=== PATIENT | male | born 1950 ===

== ENCOUNTER 2017-12-21 13:10 | Inpatient (IN) | payer MEDICARE, MEDICAID ==
[2017-12-21 13:26] VITALS: BMI 24.3
[2017-12-21] MEDS ORDERED: diltiaZEM IVPB 100mg in NS 100 ML IV PRN (13:47)
[2017-12-21] MEDS ORDERED: Sodium Chloride 0.9% 500 ML IV STA (14:16)
--- NOTE | 2017-12-21 14:22 | RAD ---
HISTORY: sob COMPARISON: No prior. FINDINGS: LUNGS: No active pulmonary disease. PLEURA: No significant pleural effusion identified, no pneumothorax apparent. CARDIOVASCULAR: Mild cardiomegaly OSSEOUS STRUCTURES: No significant abnormalities. VISUALIZED UPPER ABDOMEN: Normal. OTHER FINDINGS: None. IMPRESSION: No active disease.
[2017-12-21 14:30] LABS: BASO # 0.03 K/mm3 (0.0-2.0); BASO % 0.6 % (0.0-3.0); EOS # 0.1 (0.0-0.7); EOS % 1.7 % (1.5-5.0); GRAN # 2.5 (1.4-6.5); GRAN % 46.9 % (50.0-68.0); HEMOGLOBIN 13.8 g/dL (14.0-18.0); LYMPH % 37.1 % (22.0-35.0); MEAN CELL VOLUME 90.3 fl (80.0-105.0); MEAN CORPUSCULAR HGB CONC 34.3 g/dl (31.0-37.0); MEAN PLATELET VOLUME 12.3 fl (7.0-11.0); MONO # 0.7 (0.1-0.6); MONO % 13.7 % (1.0-6.0); RBC 4.45 10^6/uL (3.5-6.1); RED CELL DISTRIBUTION WIDTH 17.2 % (11.5-14.5); WHITE BLOOD COUNT 5.3 10^3/ul (4.5-11.0)
--- NOTE | 2017-12-21 14:34 | ED PDOC ---
Arrival/HPI - General Historian: Patient - History of Present Illness Time/Duration: < week Symptom Onset: Gradual Symptom Course: Worsening Quality: Pressure, Tightness <Griffin Hensley - Last Filed: 12/21/17 17:28> <OdiliaMorgan - Last Filed: 12/21/17 18:53> - General Chief Complaint: Chest Pain Time Seen by Provider: 12/21/17 13:35 - History of Present Illness Narrative History of Present Illness (Text): 12/21/17 14:36 Patient is a 67 yo greek speaking M with PMH of cardiomyopathy, CHF, a. fib on AC, DM, asthma, alzheimer's, insomnia, RI (2017, cardiac catherization, stent placement is unknown) presents to ED due to chest tightness, palpitations , dyspnea and productive cough with white phlegm. Patient states that his symptoms began yesterday with insidious onset. Patient states that his symptoms are similar to when he was diagnosed about 1 month ago with atrial fibrillation. Patient denies n/v, abdominal pain, fever, chills, NEFF, or dizziness. PMD: Eddie Cardio: [facility] Translation provided [facility] [place], [id number] (Griffin Hensley) Past Medical History - Cardiac Hx Cardiac Disorders: Yes Hx Atrial Fibrillation: Yes Hx Congestive Heart Failure: Yes Hx RI: Yes Hx Hypertension: Yes Other/Comment: cardiomyopathy - Pulmonary Hx Respiratory Disorders: Yes Hx Chronic Obstructive Pulmonary Disease (COPD): Yes - Neurological Hx Neurological Disorder: No - HEENT Hx HEENT Disorder: No - Renal Hx Renal Disorder: No - Endocrine/Metabolic Hx Endocrine Disorders: Yes Hx Diabetes Mellitus Type 2: Yes - Hematological/Oncological Hx Blood Disorders: No - Integumentary Hx Dermatological Disorder: No - Musculoskeletal/Rheumatological Hx Musculoskeletal Disorders: No - Gastrointestinal Hx Gastrointestinal Disorders: No - Genitourinary/Gynecological Hx Genitourinary Disorders: No - Psychiatric Hx Psychophysiologic Disorder: No Hx Substance Use: No <Griffin Hensley - Last Filed: 12/21/17 17:28> Family/Social History Family/Social History: No Known Family HX Smoking Status: Unknown If Ever Smoked Hx Alcohol Use: No Hx Substance Use: No <Griffin Hensley - Last Filed: 12/21/17 17:28> Allergies/Home Meds <Griffin Hensley - Last Filed: 12/21/17 17:28> <Neri Hartleyoracio - Last Filed: 12/21/17 18:53> Allergies/Adverse Reactions: Allergies Penicillins Allergy (Verified 12/21/17 13:41) RASH Home Medications: Home Meds Medication Instructions Recorded Confirmed Albuterol HFA [Ventolin HFA 90 2 puff INH Q6 12/21/17 12/21/17 mcg/actuation (8 g)] Apixaban [Eliquis] 5 mg PO Q12 12/21/17 12/21/17 Aspirin [[place] Aspirin] 81 mg PO DAILY 12/21/17 12/21/17 Carvedilol [Coreg] 6.25 mg PO Q12H 12/21/17 12/21/17 Digoxin [Lanoxin] 0.25 mg PO DAILY 12/21/17 12/21/17 Ergocalciferol (Vitamin D2) 50,000 unit PO QWK 12/21/17 12/21/17 [Vitamin D2] Fluticasone/Vilanterol [Breo 1 puff INH DAILY 12/21/17 12/21/17 Ellipta 200-25 Mcg INH] Gabapentin [Neurontin] 400 mg PO TID 12/21/17 12/21/17 Montelukast [Singulair] 10 mg PO HS 12/21/17 12/21/17 Pantoprazole [Protonix EC Tab] 40 mg PO DAILY 12/21/17 12/21/17 Sacubitril/Valsartan [Entresto 49 2 tab PO Q12 12/21/17 12/21/17 mg-51 mg Tablet] Spironolactone [Aldactone] 25 mg PO DAILY 12/21/17 12/21/17 Temazepam [Restoril] 30 mg PO HS 12/21/17 12/21/17 Torsemide [Demadex] 10 mg PO DAILY 12/21/17 12/21/17 guaiFENesin/Dextromethorphan 10 ml PO Q6 12/21/17 12/21/17 [Robitussin DM] Review of Systems - Physician Review All systems were reviewed & negative as marked: Yes (12 point ROS reviewed and is negative other than what is stated in HPI.) <Griffin Hensley - Last Filed: 12/21/17 17:28> Physical Exam Vital Signs Reviewed: Yes Temperature: Afebrile Blood Pressure: Normal Pulse: Tachycardic Respiratory Rate: Tachypneic Appearance: Positive for: Uncomfortable Pain Distress: Mild Mental Status: Positive for: Alert and Oriented X 3 - Systems Exam Head: Present: Atraumatic, Normocephalic Pupils: Present: PERRL Extroacular Muscles: Present: EOMI Conjunctiva: Present: Normal Mouth: Present: Moist Mucous Membranes Neck: Present: Normal Range of Motion Respiratory/Chest: Present: Clear to Auscultation. No: Respiratory Distress, Wheezes, Rales, Rhonchi Cardiovascular: Present: Normal S1, S2, Irregular Rhythm, Tachycardic. No: Murmurs, Rub, Gallop Abdomen: No: Tenderness, Distention, Rebound, Guarding Upper Extremity: Present: Normal Inspection. No: Cyanosis, Edema Lower Extremity: Present: Normal Inspection. No: Edema Neurological: Present: GCS=15, CN II-XII Intact, Speech Normal Skin: Present: Warm, Normal Color, Diaphoretic. No: Rashes Psychiatric: Present: Alert, Oriented x 3, Normal Insight, Normal Concentration <Griffin Hensley - Last Filed: 12/21/17 17:28> Vital Signs Temp Pulse Resp BP Pulse Ox 12/21/17 16:18 98.0 F 109 H 18 106/66 95 12/21/17 14:21 108 H 18 100/59 L 97 12/21/17 13:35 152 H 12/21/17 13:24 98.2 F 150 H 18 114/83 99 Medical Decision Making <Griffin Hensley - Last Filed: 12/21/17 17:28> - Critical Care Critical Care Minutes: 30 minutes <Morgan Hartley - Last Filed: 12/21/17 18:53> ED Course and Treatment: 12/21/17 14:44 67 yo M presents to ED with chest pressure, palpitations, and dyspnea was found to have atrial fibrillation with rapid ventricular rate. Plan: - CBC, CMP - Coags - Digoxin level - Cardiac iso - EKG - UA - CXR - Cardizem bolus and gtt - IVF - Reassess and disposition EKG showed rate of 150, atrial fibrillation with rapid ventricular response and PVC, non-specific t-wave abnormality probable digitalis effect. - Cardizem 15 mg IVP was given - BP post bolus was 88/53 - 500 cc NS bolus - Cardizem gtt held for now - HR now 90-100 Repeat EKG showed rate of 112, atrial fibrillation with rapid ventricular response. 12/21/17 15:02 CXR reviewed by radiologist showed no active disease. 12/21/17 15:[address] Palumbo, who agrees with plan and accepts patient under hospitalist service. Patient will be admitted to telemetry. (Griffin Hensley) 12/21/17 18:44 Patient seen and evaluated with medical billing representative. With pairer substandard, patient examined. I have reviewed paperwork he has provided from a recent hospital admission at outside facility. On exam, he is noted to be in atrial fibrillation with rapid ventricular response. He also is noted to have mild wheezing. Cardizem given with improvement in rate. He feels less sob, there are st changes noted on repeat EKG. Patient with improved heart rate, will admit for afib, chest pain, copd. Patient is currently on anticoagulants. (Morgan Hartley) - Lab Interpretations Lab Results: 12/21/17 13:33 12/21/17 13:30 Lab Results 12/21/17 13:33: Digoxin < 0.4 L 12/21/17 13:33: PT 29.0 H, INR 2.50 H, APTT 34.4 12/21/17 13:33: WBC 5.3, RBC 4.45, Hgb 13.8 L, Hct 40.2 L, MCV 90.3, MCH 31.0, MCHC 34.3, RDW 17.2 H, Plt Count 283, MPV 12.3 H, Gran % 46.9 L, Lymph % (Auto) 37.1 H, Rogers % (Auto) 13.7 H, Eos % (Auto) 1.7, Baso % (Auto) 0.6, Gran # 2.50, Lymph # (Auto) 2.0, Rogers # (Auto) 0.7 H, Eos # (Auto) 0.1, Baso # (Auto) 0.03 12/21/17 13:30: Sodium 142, Potassium 5.0, Chloride 106, Carbon Dioxide 21, Anion Gap 20, BUN 41 H, Creatinine 1.8 H, Est GFR ( Amer) 46, Est GFR ( Non-Af Amer) 38, Random Glucose 100, Calcium 9.9, Magnesium 1.8, Total Bilirubin 0.6, AST 49, ALT 74 H, Alkaline Phosphatase 81, Lactate Dehydrogenase 658, Total Creatine Kinase 63, Troponin I < 0.01, NT-Pro-B Natriuret Pep 9690 H , Total Protein 6.9, Albumin 4.1, Globulin 2.8, Albumin/Globulin Ratio 1.4 - RAD Interpretation Radiology Orders: 12/21/17 13:46 CHEST PORTABLE [RAD] Stat - Medication Orders Current Medication Orders: Apixaban (Eliquis) 5 mg PO Q12 [facility] PRN Reason: Protocol Aspirin (Aspirin Chewable) 81 mg PO DAILY [facility] Last Admin: 12/21/17 16:36 Dose: 81 mg Benzocaine/Menthol (Cepacol Sore Throat) 1 corin MT Q2H PRN PRN Reason: Sore Throat Carvedilol (Coreg) 6.25 mg PO Q12H [facility] Last Admin: 12/21/17 16:36 Dose: Not Given Non-Admin Reason: BP Parameters Not Met Digoxin (Lanoxin) 0.25 mg PO 1400 [facility] Diltiazem HCl (Cardizem) 5 mg IVP Q6 PRN PRN Reason: Other Furosemide (Lasix) 40 mg IVP DAILY [facility] Last Admin: 12/21/17 16:36 Dose: 40 mg MAR Blood Pressure Document 12/21/17 16:36 [place] (Rec: 12/21/17 16:36 [id number] Blood Pressure Blood Pressure (100/60-150/90) 106/66 IVP Administration Document 12/21/17 16:36 HI (Rec: 12/21/17 16:36 [id number][facility] Charges for Administration # of IVP Administrations 1 Gabapentin (Neurontin) 400 mg PO TID [facility] PRN Reason: Protocol Guaifenesin/Dextromethorphan (Robitussin Dm) 10 ml PO Q6 PRN PRN Reason: Cough Ibuprofen (Motrin Tab) 600 mg PO Q6H PRN PRN Reason: Pain, moderate (4-7) Insulin Human Lispro (Humalog Med) 0 units SC ACHS [facility] PRN Reason: Protocol Levalbuterol HCl (Xopenex) 1.25 mg IH [id number] [facility] Levalbuterol HCl (Xopenex) 1.25 mg IH Q2 PRN PRN Reason: Shortness of Breath Montelukast Sodium (Singulair) 10 mg PO HS [facility] Non-Formulary Medication (Fluticasone/Vilanterol [Breo Ellipta 200-25 Mcg Inh]) 1 puff INH DAILY [facility] Non-Formulary Medication (Temazepam [Restoril]) 30 mg PO HS [facility] Pantoprazole Sodium (Protonix Ec Tab) 40 mg PO 0600 [facility] Sacubitril/Valsartan (Entresto 49 Mg-51 Mg Tablet) 1 each PO Q12 [facility] Spironolactone (Aldactone) 25 mg PO DAILY [facility] Discontinued Medications Acetaminophen (Tylenol 325mg Tab) 650 mg PO STAT ONE Stop: 12/21/17 18:40 Digoxin (Lanoxin) 0.25 mg IVP STAT STA Stop: 12/21/17 16:15 Last Admin: 12/21/17 16:56 Dose: 0.25 mg MAR Apical Pulse Rate Document 12/21/17 16:56 OYELO (Rec: 12/21/17 16:56 OYELO [id number]) Apical Pulse Rate Apical Pulse Rate (60-90 beats/min) 129 IVP Administration Document 12/21/17 16:56 OYELO (Rec: 12/21/17 16:56 OYELO [id number]) Charges for Administration # of IVP Administrations 1 Diltiazem HCl (Cardizem) 15 mg IVP ONCE ONE Stop: 12/21/17 13:48 Last Admin: 12/21/17 13:35 Dose: 15 mg IVP Administration Document 12/21/17 13:35 HI (Rec: 12/21/17 14:21 HI [id number]) Charges for Administration # of IVP Administrations 1 MAR Pulse and Blood Pressure Document 12/21/17 13:35 HI (Rec: 12/21/17 14:21 HI [id number]) Pulse Pulse Rate (60-90) 152 Sodium Chloride (Sodium Chloride 0.9%) 500 mls @ 999 mls/hr IV .Q31M STA Stop: 12/21/17 14:46 Last Admin: 12/21/17 14:21 Dose: 999 mls/hr eMAR Start Stop Document 12/21/17 14:21 WV (Rec: 12/21/17 14:21 WV [id number]) Intravenous Solution Start Date 12/21/17 Start Time 14:21 Disposition/Present on Arrival - Present on Arrival Any Indicators Present on Arrival: No History of DVT/PE: No History of Uncontrolled Diabetes: No Urinary Catheter: No History of Decub. Ulcer: No History Surgical Site Infection Following: None - Disposition Have Diagnosis and Disposition been Completed?: Yes Disposition Time: 15:29 Patient Plan: Admission, Telemetry <Griffin Hensley - Last Filed: 12/21/17 17:28> <Morgan Hartley - Last Filed: 12/21/17 18:53> - Disposition Diagnosis: Atrial fibrillation with rapid ventricular response, CHF (congestive heart failure), Chest pain, COPD (chronic obstructive pulmonary disease) Disposition: HOSPITALIZED Patient Problems: Current Active Problems Problem Status Onset Atrial fibrillation with rapid ventricular response Acute CHF (congestive heart failure) Acute Chest pain Acute Condition: GUARDED
[2017-12-21 14:41] LABS: ALB/GLOB RATIO 1.4 (1.1-1.8); ALBUMIN 4.1 g/dL (3.0-4.8); ALT/SGPT 74 U/L (7-56); AST/SGOT 49 U/L (17-59); BLOOD UREA NITROGEN 41 mg/dL (7-21); CALCIUM 9.9 mg/dL (8.4-10.5); GFR AFRICAN-AMERICAN 46; GFR NON-AFRICAN AMERICAN 38
[2017-12-21 14:53] LABS: B-TYPE NATRIURETIC PEPTIDE 9690 pg/mL (0-450); TROPONIN I < 0.01 ng/mL
[2017-12-21 14:59] LABS: INR 2.5 (0.93-1.08); PARTIAL THROMBOPLASTIN TIME 34.4 Seconds (25.1-36.5)
--- NOTE | 2017-12-21 15:14 | CARD ---
APPROVED REPORT EKG Measurement Heart [id number] <Conclusion> Atrial fibrillation with rapid ventricular response with premature ventricular or aberrantly conducted complexes Nonspecific T wave abnormality, probably digitalis effect Abnormal ECG
[2017-12-21] MEDS ORDERED: Levalbuterol 1.25 MG/3 ML Inhal Soln UD IH PRN (15:46)
[2017-12-21] MEDS ORDERED: Benzocaine/Menthol (Cepacol) Lozenge MT PRN (16:14)
[2017-12-21] MEDS ORDERED: Digoxin 500 mcg/2ml (0.5 mg/2ml) Inj IVP STA (16:14)
[2017-12-21 16:19] LABS: URINE BILIRUBIN NEGATIVE (NEGATIVE); URINE BLOOD NEGATIVE (NEGATIVE); URINE GLUCOSE (UA) NEGATIVE (NEGATIVE); URINE LEUKOCYTE ESTERASE NEGATIVE Leu/uL (NEGATIVE); URINE PROTEIN 30 mg/dL (<30 mg/dL); URINE UROBILINOGEN 0.2 E.U./dL (<1 E.U./dL)
[2017-12-21 16:20] LABS: URINE APPEARANCE CLEAR (CLEAR); URINE COLOR YELLOW (YELLOW)
[2017-12-21 16:24] LABS: URINE BACTERIA LARGE (NEG)
[2017-12-21 16:26] LABS: URINE AMORPHOUS SEDIMENT FEW
[2017-12-21 16:27] LABS: URINE COARSE GRANULAR CAST SMALL /hpf (0-2)
--- NOTE | 2017-12-21 16:33 | CP.PCM.HP ---
<Trinity Holden - Last Filed: 12/21/17 16:40> History of Present Illness - History of Present Illness History of Present Illness: Trinity Holden, PGY1, H&P for Dr Palumbo: CC: cp 67 year old male with PMH cardiomyopathy, CHF with EF 20% (11/2017), afib on Eliquis, DM, asthma, insomnia, MS (2017), nonobstructive CAD, presents for worsening cp since yesterday. Pt states that he has URI symptoms of sore throat , nasal congestion, dry cough for past few days. It has exacerbated his "asthma. " He also then started feeling midsternal cp, nonradiating, no associated nausea , vomiting, abdominal pain, diaphoresis. Reports mild sob and palpitations. Denies eating excessive salt and drinking excess water. Denies fever, chills, headache, diarrhea, constipation, urinary symptoms, leg swelling, excessive orthopnea. In ED, afebrile, HR 150s afib with RVR, given cardizem 15 mg IVP with HR in 100s with low BP in 80s -> given 500 cc bolus. CXR neg for pulm congestion. 12 point ROS obtained and negative, except as per HPI. holistic specialist service used: [place] [id number] - [place] PMD: Eddie Cardio: Verna PMH: cardiomyopathy, CHF with EF 20% (11/2017), afib on Eliquis, DM, asthma, insomnia, MS (2017), nonobstructive CAD. PSH: cardiac catherization (11/2017 - no stents) All: PCN FH: denies SH: quit tobacco 12 years ago, states that he was not a heavy smoker. Prior heavy alcohol use. Denies recreational drug use. Lives by self. Has no family around. Walks with a cane. On disability since 2002. Present on Admission - Present on Admission Any Indicators Present on Admission: No History of DVT/PE: No History of Uncontrolled Diabetes: No Urinary Catheter: No Decubitus Ulcer Present: No Review of Systems - Review of Systems All systems: reviewed and no additional remarkable complaints except Review of Systems: as per HPI Past Patient History - Past Social History Smoking Status: Unknown If Ever Smoked - CARDIAC Hx Cardiac Disorders: Yes Hx Atrial Fibrillation: Yes Hx Congestive Heart Failure: Yes Hx Heart Attack: Yes Hx Hypertension: Yes Other/Comment: cardiomyopathy - PULMONARY Hx Respiratory Disorders: Yes Hx Chronic Obstructive Pulmonary Disease (COPD): Yes - NEUROLOGICAL Hx Neurological Disorder: No - HEENT Hx HEENT Problems: No - RENAL Hx Chronic Kidney Disease: No - ENDOCRINE/METABOLIC Hx Endocrine Disorders: Yes Hx Diabetes Mellitus Type 2: Yes - HEMATOLOGICAL/ONCOLOGICAL Hx Blood Disorders: No - INTEGUMENTARY Hx Dermatological Problems: No - MUSCULOSKELETAL/RHEUMATOLOGICAL Hx Musculoskeletal Disorders: No - GASTROINTESTINAL Hx Gastrointestinal Disorders: No - GENITOURINARY/GYNECOLOGICAL Hx Genitourinary Disorders: No - PSYCHIATRIC Hx Psychophysiologic Disorder: No Hx Substance Use: No - SURGICAL HISTORY Hx Surgeries: Yes Meds Allergies/Adverse Reactions: Allergies Allergy/AdvReac Type Severity Reaction Status Date / Time Penicillins Allergy RASH Verified 12/21/17 13:41 Physical Exam - Constitutional Appears: Non-toxic, No Acute Distress, Chronically Ill - Head Exam Head Exam: ATRAUMATIC, NORMOCEPHALIC - Eye Exam Eye Exam: EOMI, PERRL. absent: Conjunctival injection, Nystagmus, Scleral icterus Pupil Exam: NORMAL ACCOMODATION, PERRL. absent: Irregular, Miosis, Mydriatic, Unequal - ENT Exam ENT Exam: Mucous Membranes Moist - Neck Exam Neck exam: Positive for: Full Rom - Respiratory Exam Respiratory Exam: Clear to Auscultation Bilateral, NORMAL BREATHING PATTERN. absent: Chest Wall Tenderness, Decreased Breath Sounds, Rales, Rhonchi, Wheezes , Respiratory Distress, Stridor - Cardiovascular Exam Cardiovascular Exam: Tachycardia, Irregular Rhythm - GI/Abdominal Exam GI & Abdominal Exam: Normal Bowel Sounds, Soft. absent: Distended, Firm, Guarding, Hernia, Mass, Organomegaly, Pulsatile Mass, Rebound, Rigid, Tenderness - Extremities Exam Extremities exam: Positive for: normal inspection. Negative for: calf tenderness, pedal edema - Back Exam Back exam: NORMAL INSPECTION - Neurological Exam Neurological exam: Alert, Oriented x3 - Psychiatric Exam Psychiatric exam: Normal Affect, Normal Mood - Skin Skin Exam: Dry, Normal Color, Warm Results - Vital Signs Recent Vital Signs: Last Vital Signs Temp 98.2 F 12/21/17 13:24 Pulse 108 H 12/21/17 14:21 Resp 18 12/21/17 14:21 BP 100/59 L 12/21/17 14:21 Pulse Ox 97 12/21/17 14:21 - Labs Result Diagrams: 12/21/17 13:33 12/21/17 13:30 Assessment & Plan - Assessment and Plan (Free Text) Assessment: 67 year old male with PMH systolic heart failure with EF 20% (11/2017), afib on eliquis, DM, insomnia, nonobstructive CAD, cardiomyopathy, presents for chest pain, URI symptoms, found to be in afib with RVR: Afib with RVR: - HR 150s in ED, afib with RVR, given cardizem 15 mg IVPx1, HR in 100s. - BP on low side 80s/60s - given 500 cc bolus - will restart home digoxin 0.25 mg PO daily. home carvedilol 6.25 mg PO q12 - cardizem 5 mg IV q6 prn for HR>130s, hold if SBP<90s - tele monitoring Chest pain 2/2 MSK - trops negx1 - EKG HR 150, atrial fibrillation with rapid ventricular response and PVC, non- specific t-wave abnormality probable digitalis effect. - digoxin level low - motrin prn pain - [place] [facility] [place] st[place] - Dr Gillespie consulted. appreciate recs. Discussed with Dr Gillespie - states that there is no need for serial trops URI: - robitussin - cepacol lozenges - afebrile, no leukocytosis - monitor Hx of DM: - ISS- monitor Hx of CHF/CAD: - BNP elevated - lasix IV - Entresto, ASA 81, coreg, dig, entresto, aldactone PPX: protonix, scds. Case seen and discussed with Dr Palumbo. Trinity Holden, PGY1 - Date & Time Date: 12/21/17 Time: 16:50 <Dangelo Palumbo - Last Filed: 12/22/17 15:50> Results - Vital Signs Recent Vital Signs: Last Vital Signs Temp 97.6 F 12/22/17 11:52 Pulse 79 12/22/17 11:52 Resp 19 12/22/17 11:52 BP 95/68 L 12/22/17 11:52 Pulse Ox 98 12/22/17 06:00 - Labs Result Diagrams: 12/22/17 05:30 12/22/17 05:30 Labs: Laboratory Results - last 24 hr 12/21/17 12/21/17 12/21/17 16:10 17:49 21:40 WBC RBC Hgb Hct MCV MCH MCHC RDW Plt Count MPV Gran % Lymph % (Auto) [place] % (Auto) Eos % (Auto) Baso % (Auto) Gran # Lymph # (Auto) [place] # (Auto) Eos # (Auto) Baso # (Auto) Sodium Potassium Chloride Carbon Dioxide Anion Gap BUN Creatinine Est GFR ( Amer) Est GFR (Non-Af Amer) POC Glucose (mg/dL) 205 H 92 Random Glucose Hemoglobin A1c Calcium Total Bilirubin AST ALT Alkaline Phosphatase Total Protein Albumin Globulin Albumin/Globulin Ratio Procalcitonin Urine Color Yellow Urine Appearance Clear Urine pH 6.0 Ur Specific [place] 1.025 Urine Protein 30 H Urine Glucose (UA) Negative Urine Ketones Negative Urine Blood Negative Urine Nitrate Negative Urine Bilirubin Negative Urine Urobilinogen 0.2 Ur Leukocyte Esterase Negative Urine RBC 1 - 3 Urine WBC 5 - 10 Ur Epithelial Cells None Amorphous Sediment Few Urine Bacteria Large Hyaline Casts 3-5 Fine Granular Casts 2 - 5 Coarse Granular Casts Small H Ur Random Creatinine Ur Random Sodium Ur Random Urea Nitrogn 12/22/17 12/22/17 12/22/17 05:30 05:30 05:30 WBC 5.4 RBC 4.01 Hgb 12.1 L Hct 36.0 L MCV 89.8 MCH 30.2 MCHC 33.6 RDW 17.0 H Plt Count 236 MPV 12.0 H Gran % 41.0 L Lymph % (Auto) 43.9 H [place] % (Auto) 12.5 H Eos % (Auto) 2.2 Baso % (Auto) 0.4 Gran # 2.21 Lymph # (Auto) 2.4 [place] # (Auto) 0.7 H Eos # (Auto) 0.1 Baso # (Auto) 0.02 Sodium Potassium Chloride Carbon Dioxide Anion Gap BUN Creatinine Est GFR ( Amer) Est GFR (Non-Af Amer) POC Glucose (mg/dL) Random Glucose Hemoglobin A1c 6.6 H Calcium Total Bilirubin AST ALT Alkaline Phosphatase Total Protein Albumin Globulin Albumin/Globulin Ratio Procalcitonin 0.24 Urine Color Urine Appearance Urine pH Ur Specific [place] Urine Protein Urine Glucose (UA) Urine Ketones Urine Blood Urine Nitrate Urine Bilirubin Urine Urobilinogen Ur Leukocyte Esterase Urine RBC Urine WBC Ur Epithelial Cells Amorphous Sediment Urine Bacteria Hyaline Casts Fine Granular Casts Coarse Granular Casts Ur Random Creatinine Ur Random Sodium Ur Random Urea Nitrogn 12/22/17 12/22/17 12/22/17 05:30 07:17 10:06 WBC RBC Hgb Hct MCV MCH MCHC RDW Plt Count MPV Gran % Lymph % (Auto) [place] % (Auto) Eos % (Auto) Baso % (Auto) Gran # Lymph # (Auto) [place] # (Auto) Eos # (Auto) Baso # (Auto) Sodium 139 Potassium 5.1 H Chloride 107 Carbon Dioxide 21 Anion Gap 16 BUN 54 H Creatinine 2.2 H Est GFR ( Amer) 36 Est GFR (Non-Af Amer) 30 POC Glucose (mg/dL) 71 Random Glucose 78 Hemoglobin A1c Calcium 9.1 Total Bilirubin 0.4 AST 36 ALT 72 H Alkaline Phosphatase 75 Total Protein 5.9 Albumin 3.4 Globulin 2.5 Albumin/Globulin Ratio 1.4 Procalcitonin Urine Color Urine Appearance Urine pH Ur Specific [place] Urine Protein Urine Glucose (UA) Urine Ketones Urine Blood Urine Nitrate Urine Bilirubin Urine Urobilinogen Ur Leukocyte Esterase Urine RBC Urine WBC Ur Epithelial Cells Amorphous Sediment Urine Bacteria Hyaline Casts Fine Granular Casts Coarse Granular Casts Ur Random Creatinine 32 Ur Random Sodium 39 Ur Random Urea Nitrogn 356 12/22/17 11:17 WBC RBC Hgb Hct MCV MCH MCHC RDW Plt Count MPV Gran % Lymph % (Auto) [place] % (Auto) Eos % (Auto) Baso % (Auto) Gran # Lymph # (Auto) [place] # (Auto) Eos # (Auto) Baso # (Auto) Sodium Potassium Chloride Carbon Dioxide Anion Gap BUN Creatinine Est GFR ( Amer) Est GFR (Non-Af Amer) POC Glucose (mg/dL) 102 Random Glucose Hemoglobin A1c Calcium Total Bilirubin AST ALT Alkaline Phosphatase Total Protein Albumin Globulin Albumin/Globulin Ratio Procalcitonin Urine Color Urine Appearance Urine pH Ur Specific [place] Urine Protein Urine Glucose (UA) Urine Ketones Urine Blood Urine Nitrate Urine Bilirubin Urine Urobilinogen Ur Leukocyte Esterase Urine RBC Urine WBC Ur Epithelial Cells Amorphous Sediment Urine Bacteria Hyaline Casts Fine Granular Casts Coarse Granular Casts Ur Random Creatinine Ur Random Sodium Ur Random Urea Nitrogn Attending/Attestation - Attestation I have personally seen and examined this patient.: Yes I have fully participated in the care of the patient.: Yes I have reviewed all pertinent clinical information: Yes Notes (Text): 12/22/17 15:43 attending note; Patient seen and examined with resident in ER. Patient is a 67 year old male with the PMH of cardiomyopathy, CHF with EF 20% (11/2017), afib on Eliquis, DM, asthma, MS (2016), nonobstructive CAD,[place] cardiac [place] [facility] with chest pressure and shortness of breath. found to be in rapid A. fib. Got IV Cardizem. Patient has multiple admissions in [facility] and [facility]. Started on IV digoxin. Acute systolic CHF; continue IV Lasix, Aldactone and metolazone. cardiology evaluation requested. continue entresto. monitor in telemetry closely. COPD/asthma; continue oxygen. Continue Xopenex treatment. Acute on chronic kidney disease; mostly secondary to decompensated heart failure. Cardiorenal syndrome. monitor creatinine closely. Strict input and output ordered. daily weight ordered. Dietary education given. prognosis is poor secondary to advanced cardiomyopathy. Upon discharge the patient will follow-up with PMD .
[2017-12-21] MEDS: Levalbuterol 1.25 MG/3 ML Inhal Soln UD IH SCH (20:00)
--- NOTE | 2017-12-21 20:31 | CARD ---
APPROVED REPORT EKG Measurement Heart [id number] <Conclusion> Atrial fibrillation with rapid ventricular response Low voltage QRS T wave abnormality, consider lateral ischemia or digitalis effect Abnormal ECG
[2017-12-21] MEDS: guaiFENesin DM 200 mg-20 mg/10 ml UD PO PRN (21:30)
[2017-12-21] MEDS: SACUBITRIL 49mg/VALSARTAN 51mg tab PO SCH (21:30)
[2017-12-21] MEDS ORDERED: Pneumococcal 23-Valent Vaccine IM ONE (21:39)
[2017-12-21] MEDS: Insulin Lispro (humaLOG) MEDIUM Coverage SC SCH (21:41)
[2017-12-22] MEDS: Levalbuterol 1.25 MG/3 ML Inhal Soln UD IH SCH ×2 (02:45→08:08)
[2017-12-22] MEDS: Pantoprazole 40 mg EC Tab PO SCH (05:28)
[2017-12-22 06:19] LABS: BASO # 0.02 K/mm3 (0.0-2.0); BASO % 0.4 % (0.0-3.0); EOS # 0.1 (0.0-0.7); EOS % 2.2 % (1.5-5.0); GRAN # 2.21 (1.4-6.5); HEMOGLOBIN 12.1 g/dL (14.0-18.0); LYMPH # 2.4 (1.2-3.4); LYMPH % 43.9 % (22.0-35.0); MEAN CELL VOLUME 89.8 fl (80.0-105.0); MEAN CORPUSCULAR HEMOGLOBIN 30.2 pg (25.0-35.0); MEAN CORPUSCULAR HGB CONC 33.6 g/dl (31.0-37.0); MONO # 0.7 (0.1-0.6); MONO % 12.5 % (1.0-6.0); RBC 4.01 10^6/uL (3.5-6.1); WHITE BLOOD COUNT 5.4 10^3/ul (4.5-11.0)
[2017-12-22 06:30] LABS: ALB/GLOB RATIO 1.4 (1.1-1.8); ALBUMIN 3.4 g/dL (3.0-4.8); CALCIUM 9.1 mg/dL (8.4-10.5)
[2017-12-22] MEDS: Insulin Lispro (humaLOG) MEDIUM Coverage SC SCH (08:39)
[2017-12-22] MEDS: guaiFENesin DM 200 mg-20 mg/10 ml UD PO PRN (08:53)
--- NOTE | 2017-12-22 08:57 | CP.PCM.PN ---
<Susan Alberto - Last Filed: 12/22/17 12:18> Subjective - Date & Time of Evaluation Date of Evaluation: 12/22/17 Time of Evaluation: 14:00 - Subjective Subjective: Progress note for hospitalist service Patient with no acute events overnight. States the cp, sob and cough has improved. No nausea, vomiting or diarrhea. States he was able to sleep better. No fever or chills. Denies palpitations. On tele monitor HR 80s-120s. Objective - Vital Signs/Intake and Output Vital Signs (last 24 hours): Temp Pulse Resp BP Pulse Ox 97.7 F 103 H 20 109/77 98 12/22/17 06:00 12/22/17 06:00 12/22/17 06:00 12/22/17 06:00 12/22/17 06:00 Intake and Output: 12/22/17 12/22/17 06:59 18:59 Intake Total 300 Balance 300 - Medications Medications: Current Medications Apixaban (Eliquis) 5 mg PO Q12 [facility] PRN Reason: Protocol Last Admin: 12/21/17 21:29 Dose: 5 mg Aspirin (Aspirin Chewable) 81 mg PO DAILY [facility] Last Admin: 12/21/17 16:36 Dose: 81 mg Benzocaine/Menthol (Cepacol Sore Throat) 1 corin MT Q2H PRN PRN Reason: Sore Throat Carvedilol (Coreg) 6.25 mg PO Q12H [facility] Last Admin: 12/22/17 05:28 Dose: Not Given Digoxin (Lanoxin) 0.25 mg PO 1400 [facility] Diltiazem HCl (Cardizem) 5 mg IVP Q6 PRN PRN Reason: Other Furosemide (Lasix) 40 mg IVP DAILY [facility] Last Admin: 12/21/17 16:36 Dose: 40 mg Gabapentin (Neurontin) 400 mg PO TID [facility] PRN Reason: Protocol Last Admin: 12/21/17 19:22 Dose: 400 mg Guaifenesin/Dextromethorphan (Robitussin Dm) 10 ml PO Q6 PRN PRN Reason: Cough Last Admin: 12/21/17 21:30 Dose: 10 ml Ibuprofen (Motrin Tab) 600 mg PO Q6H PRN PRN Reason: Pain, moderate (4-7) Last Admin: 12/21/17 20:17 Dose: 600 mg Insulin Human Lispro (Humalog Med) 0 units SC ACHS [facility] PRN Reason: Protocol Last Admin: 12/22/17 08:39 Dose: Not Given Levalbuterol HCl (Xopenex) 1.25 mg IH [id number] [facility] Last Admin: 12/22/17 08:08 Dose: 1.25 mg Levalbuterol HCl (Xopenex) 1.25 mg IH Q2 PRN PRN Reason: Shortness of Breath Montelukast Sodium (Singulair) 10 mg PO HS [facility] Last Admin: 12/21/17 21:30 Dose: 10 mg Non-Formulary Medication (Fluticasone/Vilanterol [Breo Ellipta 200-25 Mcg Inh]) 1 puff INH DAILY [facility] Non-Formulary Medication (Temazepam [Restoril]) 30 mg PO [facility] Pantoprazole Sodium (Protonix Ec Tab) 40 mg PO 0600 [facility] Last Admin: 12/22/17 05:28 Dose: 40 mg Sacubitril/Valsartan (Entresto 49 Mg-51 Mg Tablet) 1 each PO Q12 [facility] Last Admin: 12/21/17 21:30 Dose: 1 each Spironolactone (Aldactone) 25 mg PO DAILY [facility] - Labs Labs: 12/22/17 05:30 12/22/17 05:30 PT 29.0 SECONDS (9.4-12.5) H 12/21/17 13:33 INR 2.50 (0.93-1.08) H 12/21/17 13:33 APTT 34.4 Seconds (25.1-36.5) 12/21/17 13:33 - Constitutional Appears: No Acute Distress, Chronically Ill - Head Exam Head Exam: ATRAUMATIC, NORMAL INSPECTION, NORMOCEPHALIC - Eye Exam Eye Exam: EOMI, Normal appearance, PERRL. absent: Scleral icterus Pupil Exam: NORMAL ACCOMODATION - ENT Exam ENT Exam: Mucous Membranes Dry - Neck Exam Neck Exam: Normal Inspection - Respiratory Exam Respiratory Exam: Clear to Ausculation Bilateral, NORMAL BREATHING PATTERN. absent: Decreased Breath Sounds, Prolonged Expiratory Phase, Rales, Rhonchi, Wheezes, Respiratory Distress, Stridor - Cardiovascular Exam Cardiovascular Exam: Irregular Rhythm, +S1, +S2. absent: Diastolic murmur, Gallop, JVD, Rubs, Murmur - GI/Abdominal Exam GI & Abdominal Exam: Soft, Normal Bowel Sounds. absent: Distended, Firm, Guarding, Rigid, Tenderness, Organomegaly, Rebound - Extremities Exam Extremities Exam: Normal Inspection. absent: Pedal Edema, Tenderness - Back Exam Back Exam: NORMAL INSPECTION - Neurological Exam Neurological Exam: Alert, Awake, Oriented x3 - Psychiatric Exam Psychiatric exam: Normal Affect, Normal Mood - Skin Skin Exam: Dry, Intact, Warm Assessment and Plan - Assessment and Plan (Free Text) Assessment: Patient is a 67 y/o with PMHx of dilated cardiomyopathy with LVEF of 20% ( last echo December 2017), pulm htn, afib on Eliquis, asthma, insomnia, h/o SC with nonobstructive CAD last cardiac cath December 2017 who presented with worsening shortness of breath and chest pain, along with cough productive with whitish sputum. Patient was found to be in RVR afib, thus was admitted for management. Plan: 1) RVR afib - HR around 90-120s - dig level <0.4 - will continue with digoxin po and coreg. - Cardizem ivp prn for hr above 130 - Chadsc vasc of 3, will continue with eliquis. - Data Services Developer following, recommendations as stated below, - Patient to follow up with the shale miner in 3 days upon discharge - Continue tele monitoring 2) CHF versus asthma/COPD exacerbation - Chest x-ray with vascular congestion, - prob bnp was elevated on admission, trop x1 normal - cardiology evaluated patient, recommending increasing Lasix to 40 bid and add metolazone 5 mg daily. - Will reduce aldactone to 12.5 mg daily and monitor potassium - Continue coreg and entresto - last echo 11/2017 with ef of 20%, last cardiac cath 12/2017 with non obstructive CAD. - continue strict i&o, and daily weight - Pulm was also consulted, started on levaquin for copd exacerbation, tapering dose steroid, brovana, pulmocort, - will continue xoponex standing dose and prn. - Continue robittusin prn for cough 3) BRIDGET on ckd - worsening renal function, creat 2.2 today - ua with course granular cast, and protein of 30, likely ATN versus cardiorenal - R/o pre-renal versus post renal - Urine lytes ordered, - patient voiding as per nurse - Insurance Sales Agent is consulted - will adjust digoxin as accordingly 4) Mil hyperkalemia- adjusting aldactone dosage, Lasix and metolazone should help - will monitor for now 5) h/o htn- bp controlled with meds listed above 6) h/o peripheral neuropathy- continue with gabapentin 7) h/o insomnia- started on Ambien prn hs 8) DVT and gi prophylaxis- on eliquis for afib and protonix for gi prophylaxis. 9) Dispo- pending - To follow up with shale miner in 3 days upon discharge. Patient seen, examined and case discussed with Dr Palumbo. <Dangelo Palumbo - Last Filed: 12/22/17 15:58> Objective - Vital Signs/Intake and Output Vital Signs (last 24 hours): Temp Pulse Resp BP Pulse Ox 97.6 F 79 19 95/68 L 98 12/22/17 11:52 12/22/17 11:52 12/22/17 11:52 12/22/17 11:52 12/22/17 06:00 Intake and Output: 12/22/17 12/22/17 06:59 18:59 Intake Total 300 Balance 300 - Medications Medications: Current Medications Apixaban (Eliquis) 5 mg PO Q12 [facility] PRN Reason: Protocol Last Admin: 12/22/17 09:02 Dose: 5 mg Arformoterol Tartrate (Brovana) 15 mcg IH [id number] [facility] Last Admin: 12/22/17 11:04 Dose: 15 mcg Aspirin (Aspirin Chewable) 81 mg PO DAILY [facility] Last Admin: 12/22/17 09:02 Dose: 81 mg Benzocaine/Menthol (Cepacol Sore Throat) 1 corin MT Q2H PRN PRN Reason: Sore Throat Last Admin: 12/22/17 08:54 Dose: 1 corin Budesonide (Pulmicort Respules) 0.5 mg IH [id number] [facility] Last Admin: 12/22/17 11:04 Dose: 0.5 mg Carvedilol (Coreg) 6.25 mg PO Q12H [facility] Last Admin: 12/22/17 05:28 Dose: Not Given Digoxin (Lanoxin) 0.25 mg PO 1400 [facility] Last Admin: 12/22/17 14:00 Dose: 0.25 mg Diltiazem HCl (Cardizem) 5 mg IVP Q6 PRN PRN Reason: Other Furosemide (Lasix) 40 mg IVP Q12 [facility] Gabapentin (Neurontin) 400 mg PO TID [facility] PRN Reason: Protocol Last Admin: 12/22/17 14:00 Dose: 400 mg Guaifenesin/Dextromethorphan (Robitussin Dm) 10 ml PO Q6 PRN PRN Reason: Cough Last Admin: 12/22/17 08:53 Dose: 10 ml Ipratropium [place] (Atrovent) 0.5 mg IH [id number] [facility] Last Admin: 12/22/17 13:32 Dose: Not Given Levalbuterol HCl (Xopenex) 1.25 mg IH Q2 PRN PRN Reason: Shortness of Breath Levofloxacin (Levaquin) 750 mg PO Q48H [facility] PRN Reason: Protocol Last Admin: 12/22/17 10:54 Dose: 750 mg Metolazone (Zaroxolyn) 5 mg PO DAILY [facility] Last Admin: 12/22/17 10:58 Dose: 5 mg Montelukast Sodium (Singulair) 10 mg PO HS [facility] Last Admin: 12/21/17 21:30 Dose: 10 mg Pantoprazole Sodium (Protonix Ec Tab) 40 mg PO 0600 [facility] Last Admin: 12/22/17 05:28 Dose: 40 mg Prednisone (Prednisone Tab) 20 mg PO Q8H [facility] Last Admin: 12/22/17 10:53 Dose: 20 mg Sacubitril/Valsartan (Entresto 49 Mg-51 Mg Tablet) 1 each PO Q12 [facility] Last Admin: 12/22/17 09:26 Dose: 1 each Spironolactone (Aldactone) 12.5 mg PO DAILY [facility] Zolpidem Tartrate (Ambien) 5 mg PO HS PRN; Protocol PRN Reason: Insomnia - Labs Labs: 12/22/17 05:30 12/22/17 05:30 PT 29.0 SECONDS (9.4-12.5) H 12/21/17 13:33 INR 2.50 (0.93-1.08) H 12/21/17 13:33 APTT 34.4 Seconds (25.1-36.5) 12/21/17 13:33 Attending/Attestation - Attestation I have personally seen and examined this patient.: Yes I have fully participated in the care of the patient.: Yes I have reviewed all pertinent clinical information, including history, physical exam and plan: Yes Notes (Text): 12/22/17 15:54 attending note; Patient seen and examined with resident , shale miner and theater set production designer. Patient is a 67 year old male with the PMH of cardiomyopathy, CHF with EF 20% (11/2017), afib on Eliquis, DM, asthma, SC (2016), nonobstructive CAD,recent cardiac cath One month ago [place] [facility] [place] admitted with chest pressure and shortness of breath. Currently A. fib is rate controlled. continue Coreg, digoxin and entersto. Acute systolic CHF; continue IV Lasix, Aldactone and metolazone. cardiology evaluation appreciated. continue entresto. mild hyperkalemia; Aldactone dosage decreased. COPD/asthma; continue oxygen,Brovana, Atrovent and by mouth prednisone and levofloxacin. Pulmonary evaluation appreciated. Acute on chronic kidney disease; mostly secondary to decompensated heart failure. Cardiorenal syndrome. nephrology evaluation requested. Strict input and output ordered. daily weight ordered. Dietary education given. prognosis is poor secondary to advanced cardiomyopathy. Upon discharge the patient will follow-up with PMD .
[2017-12-22] MEDS: SACUBITRIL 49mg/VALSARTAN 51mg tab PO SCH ×2 (09:26→22:22)
--- NOTE | 2017-12-22 09:44 | CP.PCM.CON ---
History of Present Illness - History of Present Illness History of Present Illness: patient is a 67 y/o gentleman known to us from multiple admssions at [facility] well as outpatient f/u. Patient with severe NICM Chronic AFIB Normal Cath 12/2017 Background COPD/emphysema/asthma Mild Pulmonary HTN Presents with ADHF and astham/bronchitis sx's. Review of Systems - Review of Systems All systems: reviewed and no additional remarkable complaints except Past Patient History - Past Social History Smoking Status: Never Smoked - CARDIAC Hx Cardiac Disorders: Yes (mi) Hx Cardia Arrhythmia: Yes (afib dx 1 mo ago) Hx Congestive Heart Failure: Yes Hx Hypertension: Yes Hx Peripheral Edema: Yes (ble +1 pitting) Other/Comment: cardiomyopathy - PULMONARY Hx Respiratory Disorders: Yes Hx Asthma: Yes Hx Chronic Obstructive Pulmonary Disease (COPD): Yes - NEUROLOGICAL Hx Neurological Disorder: No - HEENT Hx HEENT Problems: Yes (eyeglasses) - RENAL Hx Chronic Kidney Disease: No - ENDOCRINE/METABOLIC Hx Endocrine Disorders: Yes Hx Diabetes Mellitus Type 2: Yes - HEMATOLOGICAL/ONCOLOGICAL Hx Blood Disorders: No - INTEGUMENTARY Hx Dermatological Problems: No - MUSCULOSKELETAL/RHEUMATOLOGICAL Hx Falls: No - GASTROINTESTINAL Hx Gastrointestinal Disorders: No - GENITOURINARY/GYNECOLOGICAL Hx Genitourinary Disorders: No - PSYCHIATRIC Hx Substance Use: No - SURGICAL HISTORY Hx Surgeries: Yes Hx Cardiac Catheterization: Yes (2017 stent unknown) Meds Allergies/Adverse Reactions: Allergies Allergy/AdvReac Type Severity Reaction Status Date / Time Penicillins Allergy RASH Verified 12/21/17 13:41 - Medications Medications: Current Medications Apixaban (Eliquis) 5 mg PO Q12 [facility] PRN Reason: Protocol Last Admin: 12/22/17 09:02 Dose: 5 mg Aspirin (Aspirin Chewable) 81 mg PO DAILY [facility] Last Admin: 12/22/17 09:02 Dose: 81 mg Benzocaine/Menthol (Cepacol Sore Throat) 1 corin MT Q2H PRN PRN Reason: Sore Throat Last Admin: 12/22/17 08:54 Dose: 1 corin Carvedilol (Coreg) 6.25 mg PO Q12H [facility] Last Admin: 12/22/17 05:28 Dose: Not Given Digoxin (Lanoxin) 0.25 mg PO 1400 [facility] Diltiazem HCl (Cardizem) 5 mg IVP Q6 PRN PRN Reason: Other Furosemide (Lasix) 40 mg IVP DAILY [facility] Last Admin: 12/21/17 16:36 Dose: 40 mg Gabapentin (Neurontin) 400 mg PO TID [facility] PRN Reason: Protocol Last Admin: 12/22/17 09:00 Dose: 400 mg Guaifenesin/Dextromethorphan (Robitussin Dm) 10 ml PO Q6 PRN PRN Reason: Cough Last Admin: 12/22/17 08:53 Dose: 10 ml Insulin Human Lispro (Humalog Med) 0 units SC ACHS [facility] PRN Reason: Protocol Last Admin: 12/22/17 08:39 Dose: Not Given Levalbuterol HCl (Xopenex) 1.25 mg IH Q6BVCGP [facility] Last Admin: 12/22/17 08:08 Dose: 1.25 mg Levalbuterol HCl (Xopenex) 1.25 mg IH Q2 PRN PRN Reason: Shortness of Breath Montelukast Sodium (Singulair) 10 mg PO HS [facility] Last Admin: 12/21/17 21:30 Dose: 10 mg Non-Formulary Medication (Fluticasone/Vilanterol [Breo Ellipta 200-25 Mcg Inh]) 1 puff INH DAILY [facility] Temazepam [Restoril] (30 Mg) 30 mg PO HS [facility] Pantoprazole Sodium (Protonix Ec Tab) 40 mg PO 0600 [facility] Last Admin: 12/22/17 05:28 Dose: 40 mg Sacubitril/Valsartan (Entresto 49 Mg-51 Mg Tablet) 1 each PO Q12 [facility] Last Admin: 12/22/17 09:26 Dose: 1 each Spironolactone (Aldactone) 25 mg PO DAILY [facility] Last Admin: 12/22/17 09:01 Dose: 25 mg Physical Exam - Constitutional Appears: No Acute Distress - Head Exam Head Exam: ATRAUMATIC, NORMAL INSPECTION, NORMOCEPHALIC - Eye Exam Eye Exam: EOMI, Normal appearance, PERRL - ENT Exam ENT Exam: Normal Oropharynx - Neck Exam Neck exam: Positive for: Normal Inspection - Respiratory Exam Respiratory Exam: Clear to Auscultation Bilateral - Cardiovascular Exam Cardiovascular Exam: Irregular Rhythm. absent: +S1, +S2, Systolic Murmur - GI/Abdominal Exam GI & Abdominal Exam: Normal Bowel Sounds, Soft. absent: Tenderness - Extremities Exam Extremities exam: Positive for: normal inspection, pedal edema. Negative for: calf tenderness, tenderness - Neurological Exam Neurological exam: Alert, Oriented x3 - Psychiatric Exam Psychiatric exam: Normal Affect, Normal Mood - Skin Skin Exam: Normal Color, Warm Results - Vital Signs Recent Vital Signs: Last Vital Signs Temp 97.7 F 12/22/17 06:00 Pulse 103 H 12/22/17 06:00 Resp 20 12/22/17 06:00 BP 109/77 12/22/17 06:00 Pulse Ox 98 12/22/17 06:00 - Labs Result Diagrams: 12/22/17 05:30 12/22/17 05:30 Labs: Laboratory Results - last 24 hr 12/21/17 12/21/17 12/21/17 16:10 17:49 21:40 WBC RBC Hgb Hct MCV MCH MCHC RDW Plt Count MPV Gran % Lymph % (Auto) [place] % (Auto) Eos % (Auto) Baso % (Auto) Gran # Lymph # (Auto) [place] # (Auto) Eos # (Auto) Baso # (Auto) Sodium Potassium Chloride Carbon Dioxide Anion Gap BUN Creatinine Est GFR ( Amer) Est GFR (Non-Af Amer) POC Glucose (mg/dL) 205 H 92 Random Glucose Calcium Total Bilirubin AST ALT Alkaline Phosphatase Total Protein Albumin Globulin Albumin/Globulin Ratio Urine Color Yellow Urine Appearance Clear Urine pH 6.0 Ur Specific [place] 1.025 Urine Protein 30 H Urine Glucose (UA) Negative Urine Ketones Negative Urine Blood Negative Urine Nitrate Negative Urine Bilirubin Negative Urine Urobilinogen 0.2 Ur Leukocyte Esterase Negative Urine RBC 1 - 3 Urine WBC 5 - 10 Ur Epithelial Cells None Amorphous Sediment Few Urine Bacteria Large Hyaline Casts 3-5 Fine Granular Casts 2 - 5 Coarse Granular Casts Small H 12/22/17 12/22/17 12/22/17 05:30 05:30 07:17 WBC 5.4 RBC 4.01 Hgb 12.1 L Hct 36.0 L MCV 89.8 MCH 30.2 MCHC 33.6 RDW 17.0 H Plt Count 236 MPV 12.0 H Gran % 41.0 L Lymph % (Auto) 43.9 H [place] % (Auto) 12.5 H Eos % (Auto) 2.2 Baso % (Auto) 0.4 Gran # 2.21 Lymph # (Auto) 2.4 [place] # (Auto) 0.7 H Eos # (Auto) 0.1 Baso # (Auto) 0.02 Sodium 139 Potassium 5.1 H Chloride 107 Carbon Dioxide 21 Anion Gap 16 BUN 54 H Creatinine 2.2 H Est GFR ( Amer) 36 Est GFR (Non-Af Amer) 30 POC Glucose (mg/dL) 71 Random Glucose 78 Calcium 9.1 Total Bilirubin 0.4 AST 36 ALT 72 H Alkaline Phosphatase 75 Total Protein 5.9 Albumin 3.4 Globulin 2.5 Albumin/Globulin Ratio 1.4 Urine Color Urine Appearance Urine pH Ur Specific [place] Urine Protein Urine Glucose (UA) Urine Ketones Urine Blood Urine Nitrate Urine Bilirubin Urine Urobilinogen Ur Leukocyte Esterase Urine RBC Urine WBC Ur Epithelial Cells Amorphous Sediment Urine Bacteria Hyaline Casts Fine Granular Casts Coarse Granular Casts - EKG Data EKG Interpreted by: Myself (AFIB, no ischemia) Assessment & Plan - Assessment and Plan (Free Text) Assessment: 1. ADHF (CXR with congestion, inc PBNP, audible crep at bases) NICM: cath normal 12/2017 Maximize CHF therapy Entresto coreg : Low BP prevents titration Lasix inc to 40 IV BID and cnsider metolazone 5 Caution with DIG: as CKD/BRIDGET stage 3-4, K+ 5.1 dig level was 0.4 CHF diet 2. AFIB chronic cont eliquis rate control with dig and coreg future consideration of AFIB ablation or CV and maintainence therapy 3. COPD/Bronchitis Adjust meds for COPD Pulm suportive care F/U with my partner Dr. Gillespie after d/c when stable
[2017-12-22] MEDS ORDERED: Tiotropium 18 mcg Cap For Inhalation IH SCH (10:00)
[2017-12-22] MEDS ORDERED: Non Formulary Medication (Fluticasone/Vilanterol [Breo Ellipta 200-25 Mcg Inh] 1 PUFF) INH SCH (10:00)
[2017-12-22] MEDS ORDERED: levoFLOXacin 750 MG TAB PO SCH (10:15)
[2017-12-22 10:28] LABS: CREATININE,RANDOM URINE 32 mg/dL
[2017-12-22] MEDS: metOLazone 5 MG TAB PO SCH (10:58)
[2017-12-22] MEDS: Arformoterol 15 mcg/2 ml Inh Sol IH SCH ×2 (11:04→19:22)
[2017-12-22] MEDS: Budesonide 0.5 mg/2 ml Inhal Susp UD IH SCH ×2 (11:04→19:22)
[2017-12-22] MEDS: Ipratropium 0.02% Inhal Soln (0.5 mg/2.5 ml) UD IH SCH ×2 (13:32→19:22)
[2017-12-22] MEDS: Digoxin 250 mcg (0.25 mg) Tab PO SCH (14:00)
--- NOTE | 2017-12-22 14:11 | IP.NPCORE ---
Heart Failure Core Measure ZECHARIAH Inhibitor Prescribed: Yes Beta-Emilee Prescribed: Carvedilol Angiotensin II Receptor Emilee Prescribed: Yes AnticoagulationTherapy for Atrial Fibrillation/Atrialflutter: Yes Aldosterone Antagonist Prescribed: Yes Hydralazine Nitrate Prescribed: No Contraindication/Reason for not providing: hypotensive Implantable Cardioverter Defibrillator Therapy: No Cardiac Resynchronization Therapy Prescribed: Yes Contraindication/Reason for not providing: possible afib ablation therapy - discussed for new onset afib - Follow up Will be discharged to: Home Follow Up Date (must be within 7 days from discharge): 12/29/17 (recommended date) Follow Up Time: 09:00
--- NOTE | 2017-12-22 14:30 | PQF GENQUE ---
This form is a permanent part of the medical record Dr. Lau, Chart reflects this patient was admitted with afib RVR and CHF. Documentation in H&P notes that patient has systolic dysfunction with EF 20%. Your cardiology consult (done by your associate Dr. Lau) uses the term "ADHF " when referring to CHF noting criteria of CXR with congestion and elevated BNP. Please clarify use of this abbreviation (? acute diastolic heart failure) so accurate code is applied. Clarification of your documentation is requested to better reflect the severity of illness and intensity of treatment of your patient. Indicators present [] Specify: [] [] Specify: [] [] Specify: [] [] Specify: [] Location in the medical record that reflects the above clinical findings: [] Treatment Provided: [] PHYSICIAN'S RESPONSE Based on your medical judgment of the clinical indicators outlined above please clarify the following: [] Practitioner response [] If unable to determine, please check the box, sign and date. Present On Admission (POA) Indicator: [] Present at the time of admission [] Not present at the time of admission [] Clinically Undetermined In responding to this query, please exercise your independent professional judgment. The fact that a question is asked does not imply that any particular answer is desired or expected. Thank you for your clarification on this documentation. If you have any questions please call:[ ] * Thank you, [ ]Anabell Patel [facility] #[id number] mine engineering superintendent POLLO
[2017-12-22] MEDS ORDERED: Arformoterol 15 mcg/2 ml Inh Sol IH SCH (20:00)
[2017-12-22] MEDS ORDERED: Budesonide 0.5 mg/2 ml Inhal Susp UD IH SCH (20:00)
[2017-12-22 21:46] LABS: TROPONIN I < 0.01 ng/mL
[2017-12-23] MEDS: Ipratropium 0.02% Inhal Soln (0.5 mg/2.5 ml) UD IH SCH ×2 (01:14→07:47)
--- NOTE | 2017-12-23 05:29 | CP.PCM.CON ---
History of Present Illness - History of Present Illness History of Present Illness: 67 yo M w/ pmh of CHF w/ severe systolic dysfunction, pulmonary htn, COPD, afib , presented to ED with chest pain, admitted for CHF/COPD exacerbation; nephrology being consulted for acute kidney injury; Patient s/p cardiac cath earlier this month showing non-obstructive CAD; has been admitted multiple times over past 2 months for CHF exacerbation and afib w / RVR; Per last d/c med list from [facility], patient had aldactone added and entresto dose increased; patient with baseline serum creatinine ~1.1, now increased to 2.2 with patient continued on diuretics (switched from PO to IV lasix 40 mg q12h) but aldactone dose decreased in the setting of borderline high potassium; Past Patient History - Past Social History Smoking Status: Never Smoked - CARDIAC Hx Congestive Heart Failure: Yes (Cardiomyopathy, A fib on AC, [place] ( 2017, cardiac cath stent placement is unk) - PULMONARY Hx Chronic Obstructive Pulmonary Disease (COPD): Yes - NEUROLOGICAL Hx Neurological Disorder: No - HEENT Hx HEENT Problems: Yes (eyeglasses) - RENAL Hx Chronic Kidney Disease: No - ENDOCRINE/METABOLIC Hx Diabetes Mellitus Type 2: Yes - HEMATOLOGICAL/ONCOLOGICAL Hx Blood Disorders: No - INTEGUMENTARY Hx Dermatological Problems: No - MUSCULOSKELETAL/RHEUMATOLOGICAL Hx Falls: No - GASTROINTESTINAL Hx Gastrointestinal Disorders: No - GENITOURINARY/GYNECOLOGICAL Hx Genitourinary Disorders: No - PSYCHIATRIC Hx Substance Use: No - SURGICAL HISTORY Hx Surgeries: Yes Hx Cardiac Catheterization: Yes (2017 stent unknown) Meds Allergies/Adverse Reactions: Allergies Allergy/AdvReac Type Severity Reaction Status Date / Time Penicillins Allergy RASH Verified 12/21/17 13:41 - Medications Medications: Current Medications Apixaban (Eliquis) 5 mg PO Q12 NILESH PRN Reason: Protocol Last Admin: 12/22/17 22:05 Dose: 5 mg Arformoterol Tartrate (Brovana) 15 mcg IH [id number] [facility] Last Admin: 12/22/17 19:22 Dose: 15 mcg Aspirin (Aspirin Chewable) 81 mg PO DAILY [facility] Last Admin: 12/22/17 09:02 Dose: 81 mg Benzocaine/Menthol (Cepacol Sore Throat) 1 corin MT Q2H PRN PRN Reason: Sore Throat Last Admin: 12/22/17 08:54 Dose: 1 corin Budesonide (Pulmicort Respules) 0.5 mg IH [id number] [facility] Last Admin: 12/22/17 19:22 Dose: 0.5 mg Carvedilol (Coreg) 6.25 mg PO Q12H [facility] Last Admin: 12/23/17 04:58 Dose: Not Given Digoxin (Lanoxin) 0.25 mg PO 1400 [facility] Last Admin: 12/22/17 14:00 Dose: 0.25 mg Diltiazem HCl (Cardizem) 5 mg IVP Q6 PRN PRN Reason: Other Last Admin: 12/22/17 20:47 Dose: 5 mg Furosemide (Lasix) 40 mg IVP Q12 [facility] Last Admin: 12/22/17 22:05 Dose: Not Given Gabapentin (Neurontin) 400 mg PO TID NILESH PRN Reason: Protocol Last Admin: 12/22/17 17:17 Dose: 400 mg Guaifenesin/Dextromethorphan (Robitussin Dm) 10 ml PO Q6 PRN PRN Reason: Cough Last Admin: 12/22/17 08:53 Dose: 10 ml Ipratropium [place] (Atrovent) 0.5 mg IH [id number] [facility] Last Admin: 12/23/17 01:14 Dose: 0.5 mg Levalbuterol HCl (Xopenex) 1.25 mg IH Q2 PRN PRN Reason: Shortness of Breath Levofloxacin (Levaquin) 750 mg PO Q48H NILESH PRN Reason: Protocol Last Admin: 12/22/17 10:54 Dose: 750 mg Metolazone (Zaroxolyn) 5 mg PO DAILY [facility] Last Admin: 12/22/17 10:58 Dose: 5 mg Montelukast Sodium (Singulair) 10 mg PO HS [facility] Last Admin: 12/22/17 22:05 Dose: 10 mg Pantoprazole Sodium (Protonix Ec Tab) 40 mg PO 0600 [facility] Last Admin: 12/22/17 05:28 Dose: 40 mg Prednisone (Prednisone Tab) 20 mg PO Q8H [facility] Last Admin: 12/23/17 02:15 Dose: 20 mg Sacubitril/Valsartan (Entresto 49 Mg-51 Mg Tablet) 1 each PO Q12 [facility] Last Admin: 12/22/17 22:22 Dose: 1 each Spironolactone (Aldactone) 12.5 mg PO DAILY NILESH Zolpidem Tartrate (Ambien) 5 mg PO HS PRN; Protocol PRN Reason: Insomnia Last Admin: 12/22/17 22:12 Dose: 5 mg Results - Vital Signs Recent Vital Signs: Last Vital Signs Temp 98.0 F 12/23/17 00:01 Pulse 72 12/23/17 04:58 Resp 20 12/23/17 00:01 BP 96/69 L 12/23/17 04:58 Pulse Ox 97 12/23/17 00:01 - Labs Result Diagrams: 12/22/17 05:30 12/22/17 05:30 Labs: Laboratory Results - last 24 hr 12/21/17 12/22/17 12/22/17 21:40 05:30 05:30 WBC RBC Hgb Hct MCV MCH MCHC RDW Plt Count MPV Gran % Lymph % (Auto) Greene % (Auto) Eos % (Auto) Baso % (Auto) Gran # Lymph # (Auto) Greene # (Auto) Eos # (Auto) Baso # (Auto) Sodium Potassium Chloride Carbon Dioxide Anion Gap BUN Creatinine Est GFR ( Amer) Est GFR (Non-Af Amer) POC Glucose (mg/dL) 92 Random Glucose Hemoglobin A1c 6.6 H Calcium Total Bilirubin AST ALT Alkaline Phosphatase Lactate Dehydrogenase Total Creatine Kinase Troponin I Total Protein Albumin Globulin Albumin/Globulin Ratio Procalcitonin 0.24 Ur Random Creatinine Ur Random Sodium Ur Random Urea Nitrogn 12/22/17 12/22/17 12/22/17 05:30 05:30 07:17 WBC 5.4 RBC 4.01 Hgb 12.1 L Hct 36.0 L MCV 89.8 MCH 30.2 MCHC 33.6 RDW 17.0 H Plt Count 236 MPV 12.0 H Gran % 41.0 L Lymph % (Auto) 43.9 H Greene % (Auto) 12.5 H Eos % (Auto) 2.2 Baso % (Auto) 0.4 Gran # 2.21 Lymph # (Auto) 2.4 Greene # (Auto) 0.7 H Eos # (Auto) 0.1 Baso # (Auto) 0.02 Sodium 139 Potassium 5.1 H Chloride 107 Carbon Dioxide 21 Anion Gap 16 BUN 54 H Creatinine 2.2 H Est GFR ( Amer) 36 Est GFR (Non-Af Amer) 30 POC Glucose (mg/dL) 71 Random Glucose 78 Hemoglobin A1c Calcium 9.1 Total Bilirubin 0.4 AST 36 ALT 72 H Alkaline Phosphatase 75 Lactate Dehydrogenase Total Creatine Kinase Troponin I Total Protein 5.9 Albumin 3.4 Globulin 2.5 Albumin/Globulin Ratio 1.4 Procalcitonin Ur Random Creatinine Ur Random Sodium Ur Random Urea Nitrogn 12/22/17 12/22/17 12/22/17 10:06 11:17 21:19 WBC RBC Hgb Hct MCV MCH MCHC RDW Plt Count MPV Gran % Lymph % (Auto) Greene % (Auto) Eos % (Auto) Baso % (Auto) Gran # Lymph # (Auto) Greene # (Auto) Eos # (Auto) Baso # (Auto) Sodium Potassium Chloride Carbon Dioxide Anion Gap BUN Creatinine Est GFR ( Amer) Est GFR (Non-Af Amer) POC Glucose (mg/dL) 102 221 H Random Glucose Hemoglobin A1c Calcium Total Bilirubin AST ALT Alkaline Phosphatase Lactate Dehydrogenase Total Creatine Kinase Troponin I Total Protein Albumin Globulin Albumin/Globulin Ratio Procalcitonin Ur Random Creatinine 32 Ur Random Sodium 39 Ur Random Urea Nitrogn 356 12/22/17 21:20 WBC RBC Hgb Hct MCV MCH MCHC RDW Plt Count MPV Gran % Lymph % (Auto) Greene % (Auto) Eos % (Auto) Baso % (Auto) Gran # Lymph # (Auto) Greene # (Auto) Eos # (Auto) Baso # (Auto) Sodium Potassium Chloride Carbon Dioxide Anion Gap BUN Creatinine Est GFR ( Amer) Est GFR (Non-Af Amer) POC Glucose (mg/dL) Random Glucose Hemoglobin A1c Calcium Total Bilirubin AST ALT Alkaline Phosphatase Lactate Dehydrogenase 438 Total Creatine Kinase 43 Troponin I < 0.01 Total Protein Albumin Globulin Albumin/Globulin Ratio Procalcitonin Ur Random Creatinine Ur Random Sodium Ur Random Urea Nitrogn - Imaging and Cardiology Chest x-ray Status: Image reviewed by me Additional comment: No obvious pulmonary vascular congestion; Assessment & Plan (1) Acute kidney injury Assessment and Plan: Patient with increase in serum creatinine from baseline of 1.1 -> 2.2; mild dipstick proteinuria that needs to be quantified; otherwise, likely cardiorenal etiology of BRIDGET in the setting of severe systolic dysfunction, along with mitral regurg and pulmonary htn (per echo from 2 months ago) with patient having been on a more aggressive diuretic regimen as well as increased ARB dose (from entresto); -Need to strike a balance between aggressive diuresis and worsening renal function; since CXR is clear, utility of more aggressive diuresis is questionable (very high PA pressures on previous echo noted); right heart cath may be beneficial in this situation; -Will obtain limited workup looking for other possible causes of BRIDGET (renal US, random urine for protein/creatinine); Status: Acute (2) Pulmonary HTN Assessment and Plan: see above; Status: Chronic (3) CHF (congestive heart failure) Assessment and Plan: see above; Status: Acute
[2017-12-23] MEDS: Pantoprazole 40 mg EC Tab PO SCH (05:48)
--- NOTE | 2017-12-23 05:54 | CON ---
DATE: 12/22/2017 HISTORY OF PRESENT ILLNESS: This is a 67-year-old gentleman with history of COPD, nonischemic cardiomyopathy with ejection fraction 20%. 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 The patient was discharged; however, his symptoms never disappeared and he presented to [facility] several days after discharge from [facility] with cough productive with whitish sputum of 3-day duration, chest pain on exertion and shortness of breath. Exertion and physical exercise were aggravating factors to his complaints, staying still helping dyspnea and SOB substantially. The patient also reports that he had productive cough on and off for many years. He used to smoke; however, quit 2 years ago. He reports smoking about half a pack a day for many years prior to quitting. PAST MEDICAL HISTORY: CHF with ejection fraction 20%; cardiomyopathy, nonischemic; atrial fibrillation, on Eliquis; diabetes mellitus; asthma; [place] in 2017. MEDICATIONS AT HOME: Robitussin, Demadex, Restoril, spironolactone, Protonix, Singulair, Neurontin, Breo Ellipta, digoxin, aspirin, Eliquis, and sacubitril/valsartan. ALLERGIES: PENICILLIN. FAMILY HISTORY: Noncontributory. SOCIAL HISTORY: No alcohol or illicit drug abuse. The patient is an ex-smoker. REVIEW OF SYSTEMS: Review of 12-organ systems other than mentioned in history of present illness is negative. PHYSICAL EXAMINATION: VITAL SIGNS: Heart rate 103, blood pressure 109/77, respiratory rate 20, oxygen saturation 98% on 2 L nasal cannula, temperature 97.7. HEENT: Head and neck atraumatic. LUNGS: Few crackles bilaterally. HEART: Regular rate and rhythm. S1 and S2 distant. ABDOMEN: Soft, nontender and nondistended. MUSCULOSKELETAL: Trace bilateral pedal and ankle edema. NEURO: The patient moves all extremities spontaneously. SKIN: Moist. PSYCH: The patient is alert, awake and oriented x3. CURRENT MEDICATIONS: Eliquis, aspirin, Coreg, digoxin, Cardizem p.r.n., Breo, Lasix 40 mg IV daily, Neurontin, Atrovent every 6 hours, Xopenex p.r.n., Protonix, Singulair, Entresto, Aldactone, and Restoril. LABORATORY DATA: WBC 5.4, hemoglobin 12.1, platelet count 236. Sodium 139, potassium 5.1, chloride 107, carbon dioxide 21, BUN 54, creatinine 2.2, glucose 71, AST 36, ALT 72, total bilirubin 0.4. First troponin less than 0.01. ProBNP 9619. INR 2.5. PH level less than 0.4. IMAGING STUDIES: Chest x-ray, some vascular congestion. EKG, atrial fibrillation at 150 per minute. ASSESSMENT AND PLAN: This 67-year-old gentleman who presented with fluid overload/congestive heart failure due to severe left ventricular systolic dysfunction. Most likely, the patient also has a component of chronic obstructive pulmonary disease and that has to be addressed as well. Cardiology Service is following patient for congestive heart failure and optimizing his heart rate control medication, diuresis and therapeutic anticoagulation to prevent stroke. I agree with the above. Meanwhile, I will continue with ICS/LABA. I will start patient on Atrovent every 6 hours and if tolerates well, we will switch to Spiriva. I will start the patient on systemic steroid taper and antibiotics. We will continue with GI prophylaxis. We will continue to maintain euvolemia, euglycemia, normothermia and oxygen saturation more than 90%. We will continue with telemetry monitoring. Micheal Mackey MD MTDD
[2017-12-23 06:04] LABS: GRAN # 2.26 (1.4-6.5); GRAN % 76.6 % (50.0-68.0); HEMOGLOBIN 11.6 g/dL (14.0-18.0); LYMPH # 0.6 (1.2-3.4); LYMPH % 19.7 % (22.0-35.0); MEAN CELL VOLUME 89.7 fl (80.0-105.0); MEAN CORPUSCULAR HEMOGLOBIN 29.9 pg (25.0-35.0); MEAN CORPUSCULAR HGB CONC 33.3 g/dl (31.0-37.0); MEAN PLATELET VOLUME 11.8 fl (7.0-11.0); MONO # 0.1 (0.1-0.6); MONO % 3.7 % (1.0-6.0); RBC 3.88 10^6/uL (3.5-6.1); RED CELL DISTRIBUTION WIDTH 16.6 % (11.5-14.5)
[2017-12-23 06:39] LABS: ALB/GLOB RATIO 1.2 (1.1-1.8); ALBUMIN 3.1 g/dL (3.0-4.8); ALT/SGPT 57 U/L (7-56); AST/SGOT 22 U/L (17-59); BLOOD UREA NITROGEN 31 mg/dL (7-21); CALCIUM 8.6 mg/dL (8.4-10.5); GFR AFRICAN-AMERICAN > 60; GFR NON-AFRICAN AMERICAN 55
[2017-12-23] MEDS: Budesonide 0.5 mg/2 ml Inhal Susp UD IH SCH ×2 (07:47→20:44)
[2017-12-23] MEDS: Arformoterol 15 mcg/2 ml Inh Sol IH SCH ×2 (07:47→20:44)
[2017-12-23] MEDS: metOLazone 5 MG TAB PO SCH (09:50)
[2017-12-23] MEDS: Tiotropium 18 mcg Cap For Inhalation IH SCH (09:51)
[2017-12-23] MEDS: levoFLOXacin 750 MG TAB PO SCH (09:51)
[2017-12-23] MEDS: SACUBITRIL 49mg/VALSARTAN 51mg tab PO SCH ×2 (12:27→21:25)
--- NOTE | 2017-12-23 13:26 | US ---
PROCEDURE: Ultrasound of the Kidneys HISTORY: acute renal failure COMPARISON: None available. TECHNIQUE: Sonogram of the kidneys. FINDINGS: RIGHT KIDNEY: Measures: 9.4 cm. Normal in size, contour and echogenicity. No stone, solid mass lesion or hydronephrosis visualized. LEFT KIDNEY: Measures: 10.3 cm. Normal in size, contour and echogenicity. No stone, solid mass lesion or hydronephrosis visualized. OTHER FINDINGS: None. IMPRESSION: Unremarkable renal sonogram.
--- NOTE | 2017-12-23 13:39 | PN ---
DATE: 12/23/2017 SUBJECTIVE: The patient was seen and examined at bedside. He appears to be comfortable; however, some minimal cough with white sputum production is still present. Clinically, however, he appears to be substantially improved since hospitalization. PHYSICAL EXAMINATION: VITAL SIGNS: Heart rate 110 (atrial fibrillation on Telemetry), blood pressure 108/77, oxygen saturation 98% on 2 liters nasal cannula, respiratory rate is 20. ENT: Head and neck atraumatic. LUNGS: Decreased number of rales and crackles bilaterally. HEART: Irregular rate and rhythm. S1 and S2 distant. ABDOMEN: Soft, nontender, nondistended. MUSCULOSKELETAL: No C/C/E. NEUROLOGIC: The patient moves all extremities spontaneously. SKIN: Moist. PSYCHIATRIC: The patient is alert, awake and oriented x3. He is not in respiratory or otherwise distress. LABORATORY DATA: Sodium 139, potassium 4.9, chloride 106, carbon dioxide 23, BUN 31, creatinine 1.3 down from 2.2, glucose 124, AST 22, ALT 57, total bilirubin 0.5. Troponins x2 negative. WBC 3, hemoglobin 11.6, platelet count 226, procalcitonin is 0.24. EKG showed QTc 433. ASSESSMENT AND PLAN: This is a 67-year-old gentleman who was hospitalized with congestive heart failure and chronic obstructive pulmonary disease exacerbation. In terms of congestive heart failure, Cardiology Service is following him. He is on digoxin, Cardizem, therapeutic anticoagulation and Lasix. His heart rate is still poorly controlled and Cardiology Service is following him in this regard as well. In terms of chronic obstructive pulmonary disease exacerbation, the patient is on antibiotics, steroid taper, triple inhaler therapy (LABA/LAMA/ICS). I will switch Atrovent inhalers every 6 hours to Spiriva once a day. We will continue with GI prophylaxis. Head of bed elevated more than 35 degrees. ccm time 40 min Micheal Mackey MD MTDManuel
[2017-12-23] MEDS: Digoxin 250 mcg (0.25 mg) Tab PO SCH (14:05)
[2017-12-23 14:06] VITALS: PULSE 130
[2017-12-23] MEDS ORDERED: diltiaZEM IVPB 100mg in NS 100 ML IV PRN (14:58)
--- NOTE | 2017-12-23 15:46 | CP.PCM.PN ---
<Trinity Holden - Last Filed: 12/23/17 15:39> Subjective - Date & Time of Evaluation Date of Evaluation: 12/23/17 Time of Evaluation: 11:00 - Subjective Subjective: Trinity Holden, PGY1, Medicine Progress Note for Dr Palumbo: Patient seen and examined at bedside. Pt's HR remains elevated 110s-170s, especially with any activity. At rest, pt's HR remains in 100s-110s. Denies palpitations, fever, chills, nausea, vomiting, abdominal pain, leg swelling. Objective - Vital Signs/Intake and Output Vital Signs (last 24 hours): Temp Pulse Resp BP Pulse Ox 97.8 F 84 18 100/68 98 12/23/17 11:51 12/23/17 11:51 12/23/17 11:51 12/23/17 11:51 12/23/17 08:35 Intake and Output: 12/23/17 12/23/17 06:59 18:59 Intake Total 120 300 Output Total 900 600 Balance -780 -300 - Medications Medications: Current Medications Amiodarone HCl (Cordarone) 400 mg PO TID NILESH Apixaban (Eliquis) 5 mg PO Q12 NILESH PRN Reason: Protocol Last Admin: 12/23/17 09:51 Dose: 5 mg Arformoterol Tartrate (Brovana) 15 mcg IH [id number] [facility] Last Admin: 12/23/17 07:47 Dose: 15 mcg Aspirin (Aspirin Chewable) 81 mg PO DAILY [facility] Last Admin: 12/23/17 09:51 Dose: 81 mg Benzocaine/Menthol (Cepacol Sore Throat) 1 corin MT Q2H PRN PRN Reason: Sore Throat Last Admin: 12/22/17 08:54 Dose: 1 corin Budesonide (Pulmicort Respules) 0.5 mg IH [id number] [facility] Last Admin: 12/23/17 07:47 Dose: 0.5 mg Carvedilol (Coreg) 12.5 mg PO Q12H NIL[facility] Digoxin (Lanoxin) 0.25 mg PO 1400 NILESH Furosemide (Lasix) 40 mg IVP Q12 [facility] Last Admin: 12/23/17 09:52 Dose: 40 mg Gabapentin (Neurontin) 400 mg PO TID NILESH PRN Reason: Protocol Last Admin: 12/23/17 14:05 Dose: 400 mg Guaifenesin/Dextromethorphan (Robitussin Dm) 10 ml PO Q6 PRN PRN Reason: Cough Last Admin: 12/22/17 08:53 Dose: 10 ml Levalbuterol HCl (Xopenex) 1.25 mg IH Q2 PRN PRN Reason: Shortness of Breath Last Admin: 12/23/17 13:51 Dose: 1.25 mg Levofloxacin (Levaquin) 750 mg PO DAILY NILESH PRN Reason: Protocol Last Admin: 12/23/17 09:51 Dose: 750 mg Metolazone (Zaroxolyn) 5 mg PO DAILY [facility] Last Admin: 12/23/17 09:50 Dose: 5 mg Montelukast Sodium (Singulair) 10 mg PO HS [facility] Last Admin: 12/22/17 22:05 Dose: 10 mg Pantoprazole Sodium (Protonix Ec Tab) 40 mg PO 0600 [facility] Last Admin: 12/23/17 05:48 Dose: 40 mg Prednisone (Prednisone Tab) 20 mg PO Q8H [facility] Last Admin: 12/23/17 09:51 Dose: 20 mg Sacubitril/Valsartan (Entresto 49 Mg-51 Mg Tablet) 1 each PO Q12 [facility] Last Admin: 12/23/17 12:27 Dose: 1 each Spironolactone (Aldactone) 12.5 mg PO DAILY [facility] Last Admin: 12/23/17 09:50 Dose: 12.5 mg Tiotropium [place] (Spiriva) 18 mcg IH DAILY [facility] Last Admin: 12/23/17 09:51 Dose: 18 mcg Zolpidem Tartrate (Ambien) 5 mg PO HS PRN; Protocol PRN Reason: Insomnia Last Admin: 12/22/17 22:12 Dose: 5 mg - Labs Labs: 12/23/17 05:30 12/23/17 05:30 PT 29.0 SECONDS (9.4-12.5) H 12/21/17 13:33 INR 2.50 (0.93-1.08) H 12/21/17 13:33 APTT 34.4 Seconds (25.1-36.5) 12/21/17 13:33 - Additional Findings Additional findings: - Constitutional Appears: Non-toxic, No Acute Distress, Chronically Ill - Head Exam Head Exam: ATRAUMATIC, NORMOCEPHALIC - Eye Exam Eye Exam: EOMI, PERRL. absent: Conjunctival injection, Nystagmus, Scleral icterus Pupil Exam: NORMAL ACCOMODATION, PERRL. absent: Irregular, Miosis, Mydriatic, Unequal - ENT Exam ENT Exam: Mucous Membranes Moist - Neck Exam Neck exam: Positive for: Full Rom - Respiratory Exam Respiratory Exam: Clear to Auscultation Bilateral, NORMAL BREATHING PATTERN. absent: Chest Wall Tenderness, Decreased Breath Sounds, Rales, Rhonchi, Wheezes , Respiratory Distress, Stridor - Cardiovascular Exam Cardiovascular Exam: Tachycardia, Irregular Rhythm - GI/Abdominal Exam GI & Abdominal Exam: Normal Bowel Sounds, Soft. absent: Distended, Firm, Guarding, Hernia, Mass, Organomegaly, Pulsatile Mass, Rebound, Rigid, Tenderness - Extremities Exam Extremities exam: Positive for: normal inspection. Negative for: calf tenderness, pedal edema - Back Exam Back exam: NORMAL INSPECTION - Neurological Exam Neurological exam: Alert, Oriented x3 - Psychiatric Exam Psychiatric exam: Normal Affect, Normal Mood - Skin Skin Exam: Dry, Normal Color, Warm Assessment and Plan - Assessment and Plan (Free Text) Assessment: 67 year old male with PMH systolic heart failure with EF 20% (11/2017), afib on eliquis, DM, insomnia, nonobstructive CAD, cardiomyopathy, presents for chest pain, URI symptoms, found to be in afib with RVR: Afib with RVR: - HR 150s in ED, afib with RVR, given cardizem 15 mg IVPx1, HR in 100s. - BP on low side 80s/60s - given 500 cc bolus - home digoxin 0.25 mg PO daily. increased home carvedilol to 12.5 mg PO q12 - hold for SBP<70, as per Cardio recs. - tele monitoring - Dr Gillespie consulted. appreciate recs. Chest pain 2/2 MSK - trops negx1 - EKG HR 150, atrial fibrillation with rapid ventricular response and PVC, non- specific t-wave abnormality probable digitalis effect. - digoxin level low - motrin prn pain - cardiac cath 11/09/2017 at [facility] [place] - no stents - Dr Gillespie consulted. appreciate recs. Discussed with Dr Gillespie - states that there is no need for serial trops URI: - robitussin - cepacol lozenges - afebrile, no leukocytosis - monitor Hx of DM: - ISS- monitor Hx of CHF/CAD: - BNP elevated - lasix IV - Entresto, ASA 81, coreg, dig, entresto, aldactone PPX: protonix, scds. Case seen and discussed with Dr Palumbo. Trinity Holden, PGY1 <Dangelo Palumbo - Last Filed: 12/23/17 17:13> Objective - Vital Signs/Intake and Output Vital Signs (last 24 hours): Temp Pulse Resp BP Pulse Ox 97.8 F 133 H 18 107/78 98 12/23/17 11:51 12/23/17 16:31 12/23/17 11:51 12/23/17 16:31 12/23/17 08:35 Intake and Output: 12/23/17 12/23/17 06:59 18:59 Intake Total 120 300 Output Total 900 600 Balance -780 -300 - Medications Medications: Current Medications Amiodarone HCl (Cordarone) 400 mg PO TID NILESH Apixaban (Eliquis) 5 mg PO Q12 NILESH PRN Reason: Protocol Last Admin: 12/23/17 09:51 Dose: 5 mg Arformoterol Tartrate (Brovana) 15 mcg IH [id number] [facility] Last Admin: 12/23/17 07:47 Dose: 15 mcg Aspirin (Aspirin Chewable) 81 mg PO DAILY [facility] Last Admin: 12/23/17 09:51 Dose: 81 mg Benzocaine/Menthol (Cepacol Sore Throat) 1 corin MT Q2H PRN PRN Reason: Sore Throat Last Admin: 12/22/17 08:54 Dose: 1 corin Budesonide (Pulmicort Respules) 0.5 mg IH [id number] [facility] Last Admin: 12/23/17 07:47 Dose: 0.5 mg Carvedilol (Coreg) 12.5 mg PO Q12H [facility] Last Admin: 12/23/17 16:31 Dose: 12.5 mg Digoxin (Lanoxin) 0.25 mg PO 1400 NILESH Furosemide (Lasix) 40 mg IVP Q12 [facility] Last Admin: 12/23/17 09:52 Dose: 40 mg Gabapentin (Neurontin) 400 mg PO TID NILESH PRN Reason: Protocol Last Admin: 12/23/17 14:05 Dose: 400 mg Guaifenesin/Dextromethorphan (Robitussin Dm) 10 ml PO Q6 PRN PRN Reason: Cough Last Admin: 12/22/17 08:53 Dose: 10 ml Levalbuterol HCl (Xopenex) 1.25 mg IH Q2 PRN PRN Reason: Shortness of Breath Last Admin: 12/23/17 13:51 Dose: 1.25 mg Levofloxacin (Levaquin) 750 mg PO DAILY NILESH PRN Reason: Protocol Last Admin: 12/23/17 09:51 Dose: 750 mg Metolazone (Zaroxolyn) 5 mg PO DAILY [facility] Last Admin: 12/23/17 09:50 Dose: 5 mg Montelukast Sodium (Singulair) 10 mg PO HS [facility] Last Admin: 12/22/17 22:05 Dose: 10 mg Pantoprazole Sodium (Protonix Ec Tab) 40 mg PO 0600 [facility] Last Admin: 12/23/17 05:48 Dose: 40 mg Prednisone (Prednisone Tab) 20 mg PO Q8H N[facility] Last Admin: 12/23/17 09:51 Dose: 20 mg Sacubitril/Valsartan (Entresto 49 Mg-51 Mg Tablet) 1 each PO Q12 [facility] Last Admin: 12/23/17 12:27 Dose: 1 each Spironolactone (Aldactone) 12.5 mg PO DAILY [facility] Last Admin: 12/23/17 09:50 Dose: 12.5 mg Tiotropium [place] (Spiriva) 18 mcg IH DAILY [facility] Last Admin: 12/23/17 09:51 Dose: 18 mcg Zolpidem Tartrate (Ambien) 5 mg PO HS PRN; Protocol PRN Reason: Insomnia Last Admin: 12/22/17 22:12 Dose: 5 mg - Labs Labs: 12/23/17 05:30 12/23/17 05:30 PT 29.0 SECONDS (9.4-12.5) H 12/21/17 13:33 INR 2.50 (0.93-1.08) H 12/21/17 13:33 APTT 34.4 Seconds (25.1-36.5) 12/21/17 13:33 Attending/Attestation - Attestation I have personally seen and examined this patient.: Yes I have fully participated in the care of the patient.: Yes I have reviewed all pertinent clinical information, including history, physical exam and plan: Yes Notes (Text): 12/23/17 17:11 attending note; Patient seen and examined with resident. Patient is a 67 year old male with the PMH of cardiomyopathy, CHF with EF 20% (11/2017), afib on Eliquis, DM, asthma, [place] (2017), nonobstructive CAD,recent cardiac cath One month ago at [facility] [place] is admitted with chest pressure and shortness of breath. Currently in A. fib. Heart rate is elevated upon exertion. continue Coreg, digoxin and entersto. Case discussed with electrical and instrument engineer in detail. Coreg dosage increased. Continue digoxin. Started on amiodarone. May need outpatient ablation. Acute systolic CHF; continue IV Lasix, Aldactone and metolazone. COPD/asthma; continue oxygen,Brovana, Atrovent and by mouth prednisone and levofloxacin. Pulmonary evaluation appreciated. Acute on chronic kidney disease; mostly secondary to decompensated heart failure. Cardiorenal syndrome. nephrology evaluation appreciated. Creatinine back to 1.3. Renal ultrasound is normal. prognosis is poor secondary to advanced cardiomyopathy. Upon discharge the patient will follow-up with PMD .
--- NOTE | 2017-12-23 23:51 | CARD ---
APPROVED REPORT EKG Measurement Heart [id number] <Conclusion> Atrial fibrillation with rapid ventricular response with premature ventricular or aberrantly conducted complexes Nonspecific T wave abnormality, probably digitalis effect Abnormal ECG
[2017-12-23 23:53] VITALS: O2SAT 100
[2017-12-24] MEDS: Pantoprazole 40 mg EC Tab PO SCH (05:10)
[2017-12-24 06:26] LABS: GRAN # 4.41 (1.4-6.5); GRAN % 78.9 % (50.0-68.0); HEMOGLOBIN 11.6 g/dL (14.0-18.0); LYMPH # 0.9 (1.2-3.4); LYMPH % 16.1 % (22.0-35.0); MEAN CELL VOLUME 89.2 fl (80.0-105.0); MEAN CORPUSCULAR HEMOGLOBIN 29.9 pg (25.0-35.0); MEAN CORPUSCULAR HGB CONC 33.5 g/dl (31.0-37.0); MEAN PLATELET VOLUME 11.7 fl (7.0-11.0); MONO # 0.3 (0.1-0.6); RBC 3.88 10^6/uL (3.5-6.1); RED CELL DISTRIBUTION WIDTH 16.5 % (11.5-14.5); WHITE BLOOD COUNT 5.6 10^3/ul (4.5-11.0)
[2017-12-24 06:45] LABS: ALB/GLOB RATIO 1.2 (1.1-1.8); ALBUMIN 3.2 g/dL (3.0-4.8); ALT/SGPT 51 U/L (7-56); AST/SGOT 21 U/L (17-59); BLOOD UREA NITROGEN 37 mg/dL (7-21); CALCIUM 8.4 mg/dL (8.4-10.5); GFR AFRICAN-AMERICAN > 60; GFR NON-AFRICAN AMERICAN 55
[2017-12-24] MEDS: Arformoterol 15 mcg/2 ml Inh Sol IH SCH (07:15)
[2017-12-24] MEDS: Budesonide 0.5 mg/2 ml Inhal Susp UD IH SCH (07:16)
[2017-12-24] MEDS ORDERED: Levalbuterol 1.25 MG/3 ML Inhal Soln UD IH STA (09:36)
[2017-12-24] MEDS: levoFLOXacin 750 MG TAB PO SCH (10:23)
[2017-12-24] MEDS: SACUBITRIL 49mg/VALSARTAN 51mg tab PO SCH (10:24)
[2017-12-24] MEDS: Tiotropium 18 mcg Cap For Inhalation IH SCH (10:26)
[2017-12-24] MEDS: metOLazone 5 MG TAB PO SCH (10:33)
--- NOTE | 2017-12-24 11:04 | CP.PCM.DIS ---
<Trinity Holden - Last Filed: 12/26/17 16:17> Provider - Provider Date of Admission: 12/21/17 15:06 Attending physician: Dangelo Palumbo MD Primary care physician: Jay Morgan Time Spent in preparation of Discharge (in minutes): 60 Diagnosis - Discharge Diagnosis (1) Atrial fibrillation with rapid ventricular response Status: Acute (2) Chest pain Status: Acute Hospital Course - Lab Results Lab Results: Micro Results 12/21/17 16:10 Urine Urine Culture - Final No Growth (<1,000 CFU/ML) Most Recent Lab Values WBC 5.6 10^3/ul (4.5-11.0) D 12/24/17 05:20 RBC 3.88 10^6/uL (3.5-6.1) 12/24/17 05:20 Hgb 11.6 g/dL (14.0-18.0) L 12/24/17 05:20 Hct 34.6 % (42.0-52.0) L 12/24/17 05:20 MCV 89.2 fl (80.0-105.0) 12/24/17 05:20 MCH 29.9 pg (25.0-35.0) 12/24/17 05:20 MCHC 33.5 g/dl (31.0-37.0) 12/24/17 05:20 RDW 16.5 % (11.5-14.5) H 12/24/17 05:20 Plt Count 240 10^3/uL (120.0-450.0) 12/24/17 05:20 MPV 11.7 fl (7.0-11.0) H 12/24/17 05:20 Gran % 78.9 % (50.0-68.0) H 12/24/17 05:20 Lymph % (Auto) 16.1 % (22.0-35.0) L 12/24/17 05:20 [place] % (Auto) 5.0 % (1.0-6.0) 12/24/17 05:20 Eos % (Auto) 0.0 % (1.5-5.0) L 12/24/17 05:20 Baso % (Auto) 0.0 % (0.0-3.0) 12/24/17 05:20 Gran # 4.41 (1.4-6.5) 12/24/17 05:20 Lymph # (Auto) 0.9 (1.2-3.4) L 12/24/17 05:20 [place] # (Auto) 0.3 (0.1-0.6) 12/24/17 05:20 Eos # (Auto) 0.0 (0.0-0.7) 12/24/17 05:20 Baso # (Auto) 0.00 K/mm3 (0.0-2.0) 12/24/17 05:20 PT 29.0 SECONDS (9.4-12.5) H 12/21/17 13:33 INR 2.50 (0.93-1.08) H 12/21/17 13:33 APTT 34.4 Seconds (25.1-36.5) 12/21/17 13:33 Sodium 135 mmol/L (132-148) 12/24/17 05:20 Potassium 4.7 mmol/L (3.6-5.0) 12/24/17 05:20 Chloride 101 mmol/L (98-107) 12/24/17 05:20 Carbon Dioxide 23 mmol/L (21-33) 12/24/17 05:20 Anion Gap 16 (10-20) 12/24/17 05:20 BUN 37 mg/dL (7-21) H 12/24/17 05:20 Creatinine 1.3 mg/dl (0.8-1.5) 12/24/17 05:20 Est GFR ( Amer) > 60 12/24/17 05:20 Est GFR (Non-Af Amer) 55 12/24/17 05:20 POC Glucose (mg/dL) 130 mg/dL (65-110) H 12/23/17 21:31 Random Glucose 125 mg/dL (70-110) H 12/24/17 05:20 Hemoglobin A1c 6.6 % (4.2-6.5) H 12/22/17 05:30 Calcium 8.4 mg/dL (8.4-10.5) 12/24/17 05:20 Magnesium 1.8 mg/dL (1.7-2.2) 12/21/17 13:30 Total Bilirubin 0.5 mg/dL (0.2-1.3) 12/24/17 05:20 AST 21 U/L (17-59) 12/24/17 05:20 ALT 51 U/L (7-56) 12/24/17 05:20 Alkaline Phosphatase 57 U/L (38-126) 12/24/17 05:20 Lactate Dehydrogenase 438 U/L (333-699) 12/22/17 21:20 Total Creatine Kinase 43 U/L (35-230) 12/22/17 21:20 Troponin I < 0.01 ng/mL 12/22/17 21:20 NT-Pro-B Natriuret Pep 9690 pg/mL (0-450) H 12/21/17 13:30 Total Protein 5.8 g/dL (5.8-8.3) 12/24/17 05:20 Albumin 3.2 g/dL (3.0-4.8) 12/24/17 05:20 Globulin 2.6 gm/dL 12/24/17 05:20 Albumin/Globulin Ratio 1.2 (1.1-1.8) 12/24/17 05:20 Procalcitonin 0.24 NG/ML (0.19-0.49) 12/22/17 05:30 Urine Color Yellow (YELLOW) 12/21/17 16:10 Urine Appearance Clear (CLEAR) 12/21/17 16:10 Urine pH 6.0 (4.7-8.0) 12/21/17 16:10 Ur Specific Belk 1.025 (1.005-1.035) 12/21/17 16:10 Urine Protein 30 mg/dL (<30 mg/dL) H 12/21/17 16:10 Urine Glucose (UA) Negative mg/dL (NEGATIVE) 12/21/17 16:10 Urine Ketones Negative mg/dL (NEGATIVE) 12/21/17 16:10 Urine Blood Negative (NEGATIVE) 12/21/17 16:10 Urine Nitrate Negative (NEGATIVE) 12/21/17 16:10 Urine Bilirubin Negative (NEGATIVE) 12/21/17 16:10 Urine Urobilinogen 0.2 E.U./dL (<1 E.U./dL) 12/21/17 16:10 Ur Leukocyte Esterase Negative Crispin/uL (NEGATIVE) 12/21/17 16:10 Urine RBC 1 - 3 /hpf (0-2) 12/21/17 16:10 Urine WBC 5 - 10 /hpf (0-6) 12/21/17 16:10 Ur Epithelial Cells None /hpf (0-5) 12/21/17 16:10 Amorphous Sediment Few 12/21/17 16:10 Urine Bacteria Large (NEG) 12/21/17 16:10 Hyaline Casts 3-5 /hpf 12/21/17 16:10 Fine Granular Casts 2 - 5 /hpf (0-2) 12/21/17 16:10 Coarse Granular Casts Small /hpf (0-2) H 12/21/17 16:10 Ur Random Creatinine 79 mg/dL (20-370) 12/23/17 21:21 U Random Total Protein 62 mg/g creat (22-128) 12/23/17 21:21 Ur Random Sodium 39 meq/L 12/22/17 10:06 Ur Random Urea Nitrogn 356 mg/dL 12/22/17 10:06 Urine Total Volume 0.7 mg/dL 12/23/17 21:21 Microalb/Creat Ratio 9 (<30) 12/23/17 21:21 Digoxin < 0.4 ng/mL (0.8-2.0) L 12/21/17 13:33 - Hospital Course Hospital Course: 67 year old male with PMH cardiomyopathy, CHF with EF 20% (11/2017), afib on Eliquis, DM, asthma, insomnia, [place] (2016), nonobstructive CAD, presents for worsening cp x1 day prior to arrival, URI symptoms, found to be in afib with RVR. Pt given Cardizem 15 mg IVP in ED. Dr Gillespie (cardio) consulted, medications optimized for afib and heart failure. Pt's home carvedilol increased to 12.5 mg PO BID and resumed home digoxin. Pt had a recent cardiac [place] [facility] [place], no stents placed. URI symptoms and musculoskeletal cp treated appropirately. Medications reviewed with cardiology before discharge. Pt to follow up with PMD on Wednesday, with Dr Gillespie on . Pt states that he will follow up and stick to medication regimen. Case discussed and seen with Dr Palumbo. Trinity Holden, PGY1 Discharge Exam - Head Exam Head Exam: ATRAUMATIC, NORMAL INSPECTION, NORMOCEPHALIC - Eye Exam Eye Exam: EOMI, PERRL. absent: Conjunctival injection, Nystagmus, Scleral icterus Pupil Exam: NORMAL ACCOMODATION, PERRL. absent: Fixed, Irregular, Miosis, Unequal - ENT Exam ENT Exam: Mucous Membranes Moist - Neck Exam Neck exam: Full Rom - Respiratory Exam Respiratory Exam: Clear to PA & Lateral, NORMAL BREATHING PATTERN. absent: Accessory Muscle Use, Chest Wall Tenderness, Rales, Rhonchi, Wheezes, Respiratory Distress, Stridor - Cardiovascular Exam Cardiovascular Exam: Irregular Rhythm. absent: Systolic Murmur - GI/Abdominal Exam GI & Abdominal Exam: Normal Bowel Sounds, Soft. absent: Distended, Firm, Guarding, Mass, Organomegaly, Rebound, Rigid, Tenderness - Extremities Exam Extremities exam: normal inspection - Back Exam Back exam: NORMAL INSPECTION - Neurological Exam Neurological exam: Alert, Oriented x3 - Psychiatric Exam Psychiatric exam: Normal Affect, Normal Mood - Skin Skin Exam: Dry, Normal Color, Warm Discharge Plan - Discharge Medications Prescriptions: Amiodarone [Cordarone] 200 mg PO TID 30 Days tab Arformoterol [Brovana] 15 mcg IH [id number] 30 Days neb Benzocaine/Menthol [Cepacol Sore Throat] 1 corin MT Q2H PRN 14 Days corin PRN Reason: Sore Throat Carvedilol [Coreg] 12.5 mg PO Q12H 30 Days tab Digoxin [Lanoxin] 0.25 mg PO DAILY 30 Days tab guaiFENesin/Dextromethorphan [Robitussin DM] 10 ml PO Q6 PRN 14 Days udc PRN Reason: Cough levoFLOXacin [Levaquin] 750 mg PO DAILY 3 Days tab Methylprednisolone [Medrol Dose Pack (21 tabs)] 4 mg PO DAILY #21 mg Montelukast [Singulair] 10 mg PO HS #1 tab Sacubitril/Valsartan [Entresto 49 mg-51 mg Tablet] 1 each PO Q12 30 Days tablet Spironolactone [Aldactone] 25 mg PO DAILY 30 Days tablet Torsemide [Demadex] 10 mg PO DAILY 30 Days tab - Follow Up Plan Condition: GUARDED Disposition: HOME/ ROUTINE Instructions: Chest Pain, Atrial Fibrillation (DC), Heart Failure and Atrial Fibrillation, Heart Failure (DC) Additional Instructions: - You are started on a new medication, Amiodarone 200 mg three times a day. - Take other meds as prescribed. - Follow up with PMD Dr Morgan on Wednesday. - Follow up with Dr Gillespie on . - Return to ER for any concerns. Nursing If you begin to experience chest pain, palpitations, shortness of breath, your symptoms return or any changes, return to the emergency room or call 911. see care notes provided for further instructions. Referrals: Jay Morgan MD [Primary Care Provider] - Marko Gillespie MD [Medical Doctor] - <Dangelo Palumbo - Last Filed: 12/26/17 16:37> Provider - Provider Date of Admission: 12/21/17 15:06 Attending physician: Dangelo Palumbo MD Primary care physician: Jay Morgan Hospital Course - Lab Results Lab Results: Micro Results 12/21/17 16:10 Urine Urine Culture - Final No Growth (<1,000 CFU/ML) Most Recent Lab Values WBC 5.6 10^3/ul (4.5-11.0) D 12/24/17 05:20 RBC 3.88 10^6/uL (3.5-6.1) 12/24/17 05:20 Hgb 11.6 g/dL (14.0-18.0) L 12/24/17 05:20 Hct 34.6 % (42.0-52.0) L 12/24/17 05:20 MCV 89.2 fl (80.0-105.0) 12/24/17 05:20 MCH 29.9 pg (25.0-35.0) 12/24/17 05:20 MCHC 33.5 g/dl (31.0-37.0) 12/24/17 05:20 RDW 16.5 % (11.5-14.5) H 12/24/17 05:20 Plt Count 240 10^3/uL (120.0-450.0) 12/24/17 05:20 MPV 11.7 fl (7.0-11.0) H 12/24/17 05:20 Gran % 78.9 % (50.0-68.0) H 12/24/17 05:20 Lymph % (Auto) 16.1 % (22.0-35.0) L 12/24/17 05:20 [place] % (Auto) 5.0 % (1.0-6.0) 12/24/17 05:20 Eos % (Auto) 0.0 % (1.5-5.0) L 12/24/17 05:20 Baso % (Auto) 0.0 % (0.0-3.0) 12/24/17 05:20 Gran # 4.41 (1.4-6.5) 12/24/17 05:20 Lymph # (Auto) 0.9 (1.2-3.4) L 12/24/17 05:20 [place] # (Auto) 0.3 (0.1-0.6) 12/24/17 05:20 Eos # (Auto) 0.0 (0.0-0.7) 12/24/17 05:20 Baso # (Auto) 0.00 K/mm3 (0.0-2.0) 12/24/17 05:20 PT 29.0 SECONDS (9.4-12.5) H 12/21/17 13:33 INR 2.50 (0.93-1.08) H 12/21/17 13:33 APTT 34.4 Seconds (25.1-36.5) 12/21/17 13:33 Sodium 135 mmol/L (132-148) 12/24/17 05:20 Potassium 4.7 mmol/L (3.6-5.0) 12/24/17 05:20 Chloride 101 mmol/L (98-107) 12/24/17 05:20 Carbon Dioxide 23 mmol/L (21-33) 12/24/17 05:20 Anion Gap 16 (10-20) 12/24/17 05:20 BUN 37 mg/dL (7-21) H 12/24/17 05:20 Creatinine 1.3 mg/dl (0.8-1.5) 12/24/17 05:20 Est GFR ( Amer) > 60 12/24/17 05:20 Est GFR (Non-Af Amer) 55 12/24/17 05:20 POC Glucose (mg/dL) 133 mg/dL (65-110) H 12/24/17 16:06 Random Glucose 125 mg/dL (70-110) H 12/24/17 05:20 Hemoglobin A1c 6.6 % (4.2-6.5) H 12/22/17 05:30 Calcium 8.4 mg/dL (8.4-10.5) 12/24/17 05:20 Magnesium 1.8 mg/dL (1.7-2.2) 12/21/17 13:30 Total Bilirubin 0.5 mg/dL (0.2-1.3) 12/24/17 05:20 AST 21 U/L (17-59) 12/24/17 05:20 ALT 51 U/L (7-56) 12/24/17 05:20 Alkaline Phosphatase 57 U/L (38-126) 12/24/17 05:20 Lactate Dehydrogenase 438 U/L (333-699) 12/22/17 21:20 Total Creatine Kinase 43 U/L (35-230) 12/22/17 21:20 Troponin I < 0.01 ng/mL 12/22/17 21:20 NT-Pro-B Natriuret Pep 9690 pg/mL (0-450) H 12/21/17 13:30 Total Protein 5.8 g/dL (5.8-8.3) 12/24/17 05:20 Albumin 3.2 g/dL (3.0-4.8) 12/24/17 05:20 Globulin 2.6 gm/dL 12/24/17 05:20 Albumin/Globulin Ratio 1.2 (1.1-1.8) 12/24/17 05:20 Procalcitonin 0.24 NG/ML (0.19-0.49) 12/22/17 05:30 Urine Color Yellow (YELLOW) 12/21/17 16:10 Urine Appearance Clear (CLEAR) 12/21/17 16:10 Urine pH 6.0 (4.7-8.0) 12/21/17 16:10 Ur Specific [place] 1.025 (1.005-1.035) 12/21/17 16:10 Urine Protein 30 mg/dL (<30 mg/dL) H 12/21/17 16:10 Urine Glucose (UA) Negative mg/dL (NEGATIVE) 12/21/17 16:10 Urine Ketones Negative mg/dL (NEGATIVE) 12/21/17 16:10 Urine Blood Negative (NEGATIVE) 12/21/17 16:10 Urine Nitrate Negative (NEGATIVE) 12/21/17 16:10 Urine Bilirubin Negative (NEGATIVE) 12/21/17 16:10 Urine Urobilinogen 0.2 E.U./dL (<1 E.U./dL) 12/21/17 16:10 Ur Leukocyte Esterase Negative Crispin/uL (NEGATIVE) 12/21/17 16:10 Urine RBC 1 - 3 /hpf (0-2) 12/21/17 16:10 Urine WBC 5 - 10 /hpf (0-6) 12/21/17 16:10 Ur Epithelial Cells None /hpf (0-5) 12/21/17 16:10 Amorphous Sediment Few 12/21/17 16:10 Urine Bacteria Large (NEG) 12/21/17 16:10 Hyaline Casts 3-5 /hpf 12/21/17 16:10 Fine Granular Casts 2 - 5 /hpf (0-2) 12/21/17 16:10 Coarse Granular Casts Small /hpf (0-2) H 12/21/17 16:10 Ur Random Creatinine 79 mg/dL (20-370) 12/23/17 21:21 U Random Total Protein 62 mg/g creat (22-128) 12/23/17 21:21 Ur Random Sodium 39 meq/L 12/22/17 10:06 Ur Random Urea Nitrogn 356 mg/dL 12/22/17 10:06 Urine Total Volume 0.7 mg/dL 12/23/17 21:21 Microalb/Creat Ratio 9 (<30) 12/23/17 21:21 Digoxin < 0.4 ng/mL (0.8-2.0) L 12/21/17 13:33 Attending/Attestation - Attestation I have personally seen and examined this patient.: Yes I have fully participated in the care of the patient.: Yes I have reviewed all pertinent clinical information, including history, physical exam and plan: Yes Notes (Text): 12/26/17 16:35 attending note; Patient seen and examined with resident and metal reed tuner. Patient is a 67 year old male with the PMH of cardiomyopathy, CHF with EF 20% (11/2017), afib on Eliquis, DM, asthma, [place] (2017), nonobstructive CAD,recent cardiac cath One month ago [place] [facility] [place] admitted with chest pressure and shortness of breath. Currently A. fib is rate controlled. continue Coreg, digoxin and entersto. Case discussed with metal reed tuner in detail. Coreg dosage increased. Continue digoxin. Started on amiodarone. May need outpatient ablation. Acute systolic CHF; continue torsemide, Aldactone as outpatient. Dosage will be adjusted by metal reed tuner. Needs follow-up within 5 days. COPD/asthma; continue oxygen,Brovana, Atrovent and by mouth prednisone and levofloxacin. Pulmonary evaluation appreciated. Stable pulmonary status. Acute on chronic kidney disease; mostly secondary to decompensated heart failure. Cardiorenal syndrome. nephrology evaluation appreciated. Creatinine back to 1.3. Renal ultrasound is normal. prognosis is poor secondary to advanced cardiomyopathy. The diagnosis, follow-up plan discussed with patient in detail with Romansh- speaking nurse. The diagnosis of Advance cardiomyopathy explained in detail. analytics senior manager evaluation appreciated. Patient will follow up with PMD on Wednesday. Patient will try to apply for extended hours of home care. Upon discharge the patient will follow-up with PMD . Follow-up with Dr. Gillespie metal reed tuner within 5 days.
[2017-12-24 11:28] VITALS: RESP 16; TEMP 97.8
--- NOTE | 2017-12-24 13:13 | CP.PCM.PN ---
Subjective - Date & Time of Evaluation Date of Evaluation: 12/24/17 Time of Evaluation: 08:00 - Subjective Subjective: Events reviewed. Objective - Vital Signs/Intake and Output Vital Signs (last 24 hours): Temp Pulse Resp BP Pulse Ox 97.8 F 63 16 106/79 100 12/24/17 11:27 12/24/17 11:27 12/24/17 11:27 12/24/17 11:27 12/24/17 06:00 Intake and Output: 12/24/17 12/24/17 06:59 18:59 Intake Total 480 Output Total 350 Balance 130 - Medications Medications: Current Medications Amiodarone HCl (Cordarone) 400 mg PO TID [facility] Last Admin: 12/24/17 10:24 Dose: 400 mg Apixaban (Eliquis) 5 mg PO Q12 NILESH PRN Reason: Protocol Last Admin: 12/24/17 10:24 Dose: 5 mg Arformoterol Tartrate (Brovana) 15 mcg IH [id number] [facility] Last Admin: 12/24/17 07:15 Dose: 15 mcg Aspirin (Aspirin Chewable) 81 mg PO DAILY [facility] Last Admin: 12/24/17 10:24 Dose: 81 mg Benzocaine/Menthol (Cepacol Sore Throat) 1 corin MT Q2H PRN PRN Reason: Sore Throat Last Admin: 12/22/17 08:54 Dose: 1 corin Budesonide (Pulmicort Respules) 0.5 mg IH [id number] [facility] Last Admin: 12/24/17 07:16 Dose: 0.5 mg Carvedilol (Coreg) 12.5 mg PO Q12H [facility] Last Admin: 12/24/17 03:01 Dose: Not Given Digoxin (Lanoxin) 0.25 mg PO 1400 NILESH Furosemide (Lasix) 40 mg IVP Q12 [facility] Last Admin: 12/24/17 10:36 Dose: Not Given Gabapentin (Neurontin) 400 mg PO TID [facility] PRN Reason: Protocol Last Admin: 12/24/17 10:24 Dose: 400 mg Guaifenesin/Dextromethorphan (Robitussin Dm) 10 ml PO Q6 PRN PRN Reason: Cough Last Admin: 12/22/17 08:53 Dose: 10 ml Levalbuterol HCl (Xopenex) 1.25 mg IH Q8 [facility] Last Admin: 06/15/18 13:04 Dose: 1.25 mg Levofloxacin (Levaquin) 750 mg PO DAILY [facility] PRN Reason: Protocol Last Admin: 12/24/17 10:23 Dose: 750 mg Metolazone (Zaroxolyn) 5 mg PO DAILY [facility] Last Admin: 12/24/17 10:33 Dose: 5 mg Montelukast Sodium (Singulair) 10 mg PO HS [facility] Last Admin: 12/23/17 21:24 Dose: 10 mg Pantoprazole Sodium (Protonix Ec Tab) 40 mg PO 0600 [facility] Last Admin: 12/24/17 05:10 Dose: 40 mg Prednisone (Prednisone Tab) 20 mg PO Q8H [facility] Last Admin: 12/24/17 10:27 Dose: 20 mg Sacubitril/Valsartan (Entresto 49 Mg-51 Mg Tablet) 1 each PO Q12 [facility] Last Admin: 12/24/17 10:24 Dose: 1 each Spironolactone (Aldactone) 12.5 mg PO DAILY [facility] Last Admin: 12/24/17 10:25 Dose: 12.5 mg Tiotropium [place] (Spiriva) 18 mcg IH DAILY [facility] Last Admin: 12/24/17 10:26 Dose: 18 mcg Zolpidem Tartrate (Ambien) 5 mg PO HS PRN; Protocol PRN Reason: Insomnia Last Admin: 12/23/17 23:17 Dose: 5 mg - Labs Labs: 12/24/17 05:20 12/24/17 05:20 PT 29.0 SECONDS (9.4-12.5) H 12/21/17 13:33 INR 2.50 (0.93-1.08) H 12/21/17 13:33 APTT 34.4 Seconds (25.1-36.5) 12/21/17 13:33 - Constitutional Appears: Well, Non-toxic - Respiratory Exam Respiratory Exam: Clear to Ausculation Bilateral, NORMAL BREATHING PATTERN - Cardiovascular Exam Cardiovascular Exam: Irregular Rhythm, +S1, +S2, +S4. absent: JVD - GI/Abdominal Exam GI & Abdominal Exam: Normal Bowel Sounds. absent: Organomegaly Assessment and Plan - Assessment and Plan (Free Text) Assessment: 1. Acute on chronic systolic CHF NICM: cath normal 12/2017 Coreg 12.5 BID, Entresto Change lasix to toresmide 10mg po daily, stop metalazone 2. AFIB chronic cont eliquis rate control with dig, coreg and amiodarone, Change 200mg po TID x 7 days then lower to BID x 14 days Will reasses his need for rhythm control on follow up 3. COPD/Bronchitis Adjust meds for COPD Pulm suportive care F/U with Dr. Gillespie after d/c
[2017-12-24] MEDS ORDERED: Levalbuterol 1.25 MG/3 ML Inhal Soln UD IH SCH (14:00)
[2017-12-24] MEDS ORDERED: Digoxin 250 mcg (0.25 mg) Tab PO SCH (14:00)
[2017-12-24 15:32] VITALS: BP 106/81; PULSE 96
== END 2017-12-24 17:25 | disposition home or self-care (01) | DRG 291 ==
LOC: ED 13:10 → ERH 15:06 → 2RNO 16:38
PROVIDERS: ADMIT Internal Medicine; ATTEND Internal Medicine
DX: I13.0 Hypertensive heart and chronic kidney disease with heart failure and stage 1 through stage 4 chronic kidney disease, or unspecified chronic kidney disease (principal); I50.23 Acute on chronic systolic (congestive) heart failure; N17.9 Acute kidney failure, unspecified; J44.1 Chronic obstructive pulmonary disease with (acute) exacerbation; N18.9 Chronic kidney disease, unspecified; I42.0 Dilated cardiomyopathy; I48.2 Chronic atrial fibrillation; I25.10 Atherosclerotic heart disease of native coronary artery without angina pectoris; E11.22 Type 2 diabetes mellitus with diabetic chronic kidney disease; I27.20 Pulmonary hypertension, unspecified; E87.5 Hyperkalemia; J06.9 Acute upper respiratory infection, unspecified; I49.3 Ventricular premature depolarization; I34.0 Nonrheumatic mitral (valve) insufficiency; I25.2 Old myocardial infarction; Z87.891 Personal history of nicotine dependence; Z79.01 Long term (current) use of anticoagulants; Z79.82 Long term (current) use of aspirin

== ENCOUNTER 2018-02-15 15:01 | Inpatient (IN) | payer MEDICARE, MEDICAID ==
[2018-02-15 15:01] VITALS: BMI 24.3
--- NOTE | 2018-02-15 15:15 | ED PDOC ---
Arrival/HPI - General Time Seen by Provider: 02/15/18 15:02 Historian: Patient - History of Present Illness Narrative History of Present Illness (Text): 02/15/18 15:15 Patient is a 67 yo male past medical history of atrial fibrillation, asthma, chf , presents to the Emergency Department complaining of shortness of breath with exertion for 2-3 days associated with dizziness. Denies chest pain. Reports general weakness. Denies fevers or chills. Denies headache. Denies abdominal pain. Denies bloody urine or stool. Time/Duration: Prior to Arrival Symptom Onset: Gradual Past Medical History - Cardiac Hx Congestive Heart Failure: Yes (Cardiomyopathy, A fib on [place] ( 2017, cardiac cath stent placement is unk) - Pulmonary Hx Chronic Obstructive Pulmonary Disease (COPD): Yes - Neurological Hx Neurological Disorder: No - HEENT Hx HEENT Disorder: Yes (eyeglasses) - Renal Hx Renal Disorder: No - Endocrine/Metabolic Hx Diabetes Mellitus Type 2: Yes - Hematological/Oncological Hx Blood Disorders: No - Integumentary Hx Dermatological Disorder: No - Musculoskeletal/Rheumatological Hx Falls: No - Gastrointestinal Hx Gastrointestinal Disorders: No - Genitourinary/Gynecological Hx Genitourinary Disorders: No - Psychiatric Hx Substance Use: No - Surgical History Hx Cardiac Catheterization: Yes (2017 stent unknown) Family/Social History Family/Social History: Unknown Family HX Smoking Status: Never Smoked Hx Alcohol Use: No Hx Substance Use: No Allergies/Home Meds Allergies/Adverse Reactions: Allergies Penicillins Allergy (Verified 02/15/18 15:24) RASH Home Medications: Home Meds Medication Instructions Recorded Confirmed Albuterol HFA [Ventolin HFA 90 2 puff INH Q6 12/21/17 12/21/17 mcg/actuation (8 g)] Apixaban [Eliquis] 5 mg PO Q12 12/21/17 12/21/17 Aspirin [[place] Aspirin] 81 mg PO DAILY 12/21/17 12/21/17 Carvedilol [Coreg] 6.25 mg PO Q12H 12/21/17 12/21/17 Ergocalciferol (Vitamin D2) 50,000 unit PO QWK 12/21/17 12/21/17 [Vitamin D2] Fluticasone/Vilanterol [Breo 1 puff INH DAILY 12/21/17 12/21/17 Ellipta 200-25 Mcg INH] Gabapentin [Neurontin] 400 mg PO TID 12/21/17 12/21/17 Pantoprazole [Protonix EC Tab] 40 mg PO DAILY 12/21/17 12/21/17 Temazepam [Restoril] 30 mg PO HS 12/21/17 12/21/17 guaiFENesin/Dextromethorphan 10 ml PO Q6 12/21/17 12/21/17 [Robitussin DM] Review of Systems - Review of Systems Constitutional: Fatigue. absent: Fevers Eyes: absent: Vision Changes ENT: absent: Hearing Changes Respiratory: SOB Cardiovascular: Palpitations, KING, Orthopnea. absent: Chest Pain, Edema, Calf Pain Gastrointestinal: absent: Abdominal Pain Genitourinary Male: absent: Dysuria, Frequency Musculoskeletal: absent: Back Pain Skin: absent: Rash Neurological: Dizziness. absent: Headache, Focal Weakness Endocrine: absent: Polyuria Hemo/Lymphatic: absent: Easy Bleeding Physical Exam Vital Signs Reviewed: Yes Vital Signs Temp Pulse Resp BP Pulse Ox 02/15/18 17:10 116 H 15 110/65 100 02/15/18 15:45 98.3 F 115 H 22 127/81 96 02/15/18 15:44 115 H 127/81 02/15/18 15:18 97.8 F 116 H 20 114/76 98 Temperature: Afebrile Pulse: Tachycardic Respiratory Rate: Tachypneic Appearance: Positive for: Uncomfortable Pain Distress: Mild Mental Status: Positive for: Alert and Oriented X 3 - Systems Exam Head: Present: Atraumatic Pupils: Present: PERRL Extroacular Muscles: Present: EOMI Mouth: Present: Moist Mucous Membranes Pharnyx: No: ERYTHEMA Nose (Internal): Present: Normal Inspection Neck: Present: Normal Range of Motion. No: Meningeal Signs Respiratory/Chest: Present: Wheezes Cardiovascular: Present: Murmurs, Irregular Rhythm, Tachycardic Abdomen: No: Tenderness, Distention Rectal: No: Gross Blood Back: No: CVA Tenderness Upper Extremity: No: Cyanosis, Edema Lower Extremity: Present: Neurovascularly Intact. No: Edema, CALF TENDERNESS Neurological: Present: Motor Func Grossly Intact, Normal Sensory Function Skin: Present: Warm Psychiatric: Present: Alert, Normal Insight, Normal Concentration Medical Decision Making ED Course and Treatment: 02/15/18 15:29 Review of previous admission reveals patient has prior hx of cad, past [place], cardiomyopathy with low EF, recently with admission for atrial fibrillation. On inital exam he denies chest pain or discomfort. NO leg edema noted. Patient with oxygen saturations 99%. Cardizem ordered for rapid atrial fibrillation. CXR, labs pending. 02/15/18 17:48 Patient with improvement in heart rate after cardizem. BP remains stable. Less dyspneic with improved rate. He is currently taking anticoagulation he states and has been compliant. Denies chest pain or pleuritic discomfort. No acute edema or calf pain noted. Will admit to telemetry bed for afib, rapid, for rate control, eval for possible chf, asthma. Reviewed case with hospitalist accepts admission to telemetry. Patient updated with treatment plan. - Lab Interpretations Lab Results: 02/15/18 16:21 02/15/18 16:21 Lab Results 02/15/18 16:21: Sodium 142, Potassium 4.1, Chloride 109 H, Carbon Dioxide 20 L, Anion Gap 17, BUN 35 H, Creatinine 1.3, Est GFR ( Amer) > 60, Est GFR ( Non-Af Amer) 55, Random Glucose 99, Calcium 9.6, Magnesium 1.7, Total Bilirubin 0.7, AST 47, ALT 44, Alkaline Phosphatase 62, Lactate Dehydrogenase 473, Total Creatine Kinase 46, Troponin I < 0.01, NT-Pro-B Natriuret Pep 7660 H, Total Protein 7.0, Albumin 4.1, Globulin 2.9, Albumin/Globulin Ratio 1.4 02/15/18 16:21: PT 22.0 H, INR 1.90, APTT 34.2 02/15/18 16:21: WBC 5.1, RBC 4.16, Hgb 12.6 L, Hct 36.9 L, MCV 88.7, MCH 30.3, MCHC 34.1, RDW 18.5 H, Plt Count 240, MPV 11.4 H, Gran % 50.9, Lymph % (Auto) 32.3, [place] % (Auto) 15.6 H, Eos % (Auto) 0.8 L, Baso % (Auto) 0.4, Gran # 2.58, Lymph # (Auto) 1.6, [place] # (Auto) 0.8 H, Eos # (Auto) 0.0, Baso # (Auto) 0.02 02/15/18 15:40: Digoxin < 0.4 L - RAD Interpretation Radiology Orders: 02/15/18 16:07 CHEST PORTABLE [RAD] Stat Die Cutter: Radiologist - EKG Interpretation EKG Interpretation (Text): 02/15/18 15:28 EKG at 1519 atrial fibrillation rate of 131 with rapid ventricular response st and t wave abnormality Interpreted by ED Physician: Yes Type: 12 lead EKG - Medication Orders Current Medication Orders: diltiaZEM IVPB 100mg in NS (Cardizem 100mg In Ns) 100 mls @ 5 mls/hr IV .Q20H PRN; Protocol; 5 MG/HR PRN Reason: TITRATE PER MD ORDER Last Admin: 02/15/18 17:09 Dose: 5 mls/hr eMAR Start Stop Document 02/15/18 17:09 SRE (Rec: 02/15/18 17:10 SRE [id number]) Intravenous Solution Start Date 02/15/18 Start Time 17:10 Discontinued Medications Albuterol/Ipratropium (Duoneb 3 Mg/0.5 Mg (3 Ml) Ud) 3 ml IH STAT STA Stop: 02/15/18 16:58 Last Admin: 02/15/18 17:10 Dose: 3 ml Diltiazem HCl (Cardizem) 10 mg IVP STAT STA Stop: 02/15/18 15:28 Last Admin: 02/15/18 15:44 Dose: 10 mg IVP Administration Document 02/15/18 15:44 SRE (Rec: 02/15/18 15:44 SRE [id number]) Charges for Administration # of IVP Administrations 1 MAR Pulse and Blood Pressure Document 02/15/18 15:44 SRE (Rec: 02/15/18 15:44 SRE [id number]) Pulse Pulse Rate (60-90) 115 Blood Pressure Blood Pressure (100/60-150/90) 127/81 Furosemide (Lasix) 20 mg IVP STAT STA Stop: 02/15/18 17:53 Disposition/Present on Arrival - Present on Arrival Any Indicators Present on Arrival: Yes History of DVT/PE: No History of Uncontrolled Diabetes: Yes Urinary Catheter: No History Surgical Site Infection Following: None - Disposition Have Diagnosis and Disposition been Completed?: Yes Diagnosis: Atrial fibrillation with rapid ventricular response, COPD (chronic obstructive pulmonary disease) Disposition: HOSPITALIZED Disposition Time: 17:15 Patient Plan: Admission, Telemetry Patient Problems: Current Active Problems Problem Status Onset Atrial fibrillation with rapid ventricular response Acute COPD (chronic obstructive pulmonary disease) Acute Condition: FAIR
[2018-02-15 16:24] LABS: BASO # 0.02 K/mm3 (0.0-2.0); BASO % 0.4 % (0.0-3.0); EOS % 0.8 % (1.5-5.0); GRAN # 2.58 (1.4-6.5); GRAN % 50.9 % (50.0-68.0); HEMOGLOBIN 12.6 g/dL (14.0-18.0); LYMPH # 1.6 (1.2-3.4); LYMPH % 32.3 % (22.0-35.0); MEAN CELL VOLUME 88.7 fl (80.0-105.0); MEAN CORPUSCULAR HEMOGLOBIN 30.3 pg (25.0-35.0); MEAN CORPUSCULAR HGB CONC 34.1 g/dl (31.0-37.0); MEAN PLATELET VOLUME 11.4 fl (7.0-11.0); MONO # 0.8 (0.1-0.6); MONO % 15.6 % (1.0-6.0); RBC 4.16 10^6/uL (3.5-6.1); RED CELL DISTRIBUTION WIDTH 18.5 % (11.5-14.5); WHITE BLOOD COUNT 5.1 10^3/ul (4.5-11.0)
[2018-02-15 16:31] LABS: ALB/GLOB RATIO 1.4 (1.1-1.8); ALBUMIN 4.1 g/dL (3.0-4.8); ALT/SGPT 44 U/L (7-56); AST/SGOT 47 U/L (17-59); BLOOD UREA NITROGEN 35 mg/dL (7-21); CALCIUM 9.6 mg/dL (8.4-10.5); GFR AFRICAN-AMERICAN > 60; GFR NON-AFRICAN AMERICAN 55
[2018-02-15 16:34] LABS: INR 1.9; PARTIAL THROMBOPLASTIN TIME 34.2 Seconds (25.1-36.5)
[2018-02-15 16:42] LABS: B-TYPE NATRIURETIC PEPTIDE 7660 pg/mL (0-450); TROPONIN I < 0.01 ng/mL
--- NOTE | 2018-02-15 16:51 | RAD ---
Date of service: 02/15/2018 HISTORY: sob COMPARISON: 12/21/2017 FINDINGS: LUNGS: No active pulmonary disease. PLEURA: No significant pleural effusion identified, no pneumothorax apparent. CARDIOVASCULAR: Mild cardiomegaly OSSEOUS STRUCTURES: No significant abnormalities. VISUALIZED UPPER ABDOMEN: Normal. OTHER FINDINGS: None. IMPRESSION: No active disease.
[2018-02-15] MEDS ORDERED: diltiaZEM IVPB 100mg in NS 100 ML IV PRN (16:57)
[2018-02-15] MEDS ORDERED: Albuterol-Ipratrop 3 mg / 0.5 (3 ml) UD IH STA (16:57)
[2018-02-15] MEDS ORDERED: Ipratropium 0.02% Inhal Soln (0.5 mg/2.5 ml) UD IH PRN (18:33)
[2018-02-15] MEDS ORDERED: Digoxin 500 mcg/2ml (0.5 mg/2ml) Inj IVP ONE (18:48)
--- NOTE | 2018-02-15 18:51 | CP.PCM.HP ---
<Griffin Hensley - Last Filed: 02/15/18 18:52> History of Present Illness - History of Present Illness History of Present Illness: Hospitalist H&P for Dr. Treviño CC: Shortness of breath Patient is a 67 yo Italian speaking M with PMH of chronic CHFrEF (EF 20% 11/2017) , a-fib on [place], [place] (2016), nonobstructive CAD, asthma, DM, and insomnia presents to [facility] complaining of shortness of breath with exertion over the last day. Patient admits to productive cough with pink tinged sputum. Patient states that he cannot walk a block without becoming short of breath and often wakes up at night with shortness of breath. Patient requires multiple pillows when sleeping at night. Patient also complaining of midsternal chest pressure over the last day without radiation. Patient complained of multiple episodes of small diarrhea yesterday, but none today. Patient denied n/v, abdominal pain, fever, chills, NEFF, dizziness, dysuria, melena, or hematochezia. Of note, patient states he saw his cuff runner about one month ago. However, he has only been taking the medications listed below which does not include any medications for rate/rhythm control or loop diuretic. PMD: [place] Cardio: [place] PMHx: Chronic CHFrEF (EF 20% 11/2017), a-fib on [place] (2016), nonobstructive CAD, asthma, DM, and insomnia Surg: Cardiac cath (11/26, no stents) All: PCN SH: Former smoker, quit 12 yrs ago; Admits to social EtOH use; Denies illicit drug use FHx: Non-contributory Medications brought from home: ASA 81 daily Symbicort 150-4.5 mcg 2 puffs BID Entresto 97-103 mg BID Aldactone 25 mg daily Meclizine 25 mg daily prn Gabapentin 400 mg TID Eliquis 5 mg BID Vitamin D2 36750 units weekly Multivitamin daily Present on Admission - Present on Admission Any Indicators Present on Admission: No Review of Systems - Review of Systems All systems: reviewed and no additional remarkable complaints except (12 point ROS reviewed and is negative other than what is stated in HPI.) Past Patient History - Past Social History Smoking Status: Never Smoked - CARDIAC Hx Congestive Heart Failure: Yes (Cardiomyopathy, A fib on [place], [place] ( 2017, cardiac cath stent placement is unk) - PULMONARY Hx Chronic Obstructive Pulmonary Disease (COPD): Yes - NEUROLOGICAL Hx Neurological Disorder: No - HEENT Hx HEENT Problems: Yes (eyeglasses) - RENAL Hx Chronic Kidney Disease: No - ENDOCRINE/METABOLIC Hx Diabetes Mellitus Type 2: Yes - HEMATOLOGICAL/ONCOLOGICAL Hx Blood Disorders: No - INTEGUMENTARY Hx Dermatological Problems: No - MUSCULOSKELETAL/RHEUMATOLOGICAL Hx Falls: No - GASTROINTESTINAL Hx Gastrointestinal Disorders: No - GENITOURINARY/GYNECOLOGICAL Hx Genitourinary Disorders: No - PSYCHIATRIC Hx Psychophysiologic Disorder: No Hx Substance Use: No - SURGICAL HISTORY Hx Cardiac Catheterization: Yes (2017 stent unknown) Meds Allergies/Adverse Reactions: Allergies Allergy/AdvReac Type Severity Reaction Status Date / Time Penicillins Allergy RASH Verified 02/15/18 15:24 Physical Exam - Constitutional Appears: No Acute Distress - Head Exam Head Exam: NORMAL INSPECTION - Eye Exam Eye Exam: Normal appearance - ENT Exam ENT Exam: Normal Exam - Neck Exam Neck exam: Positive for: Normal Inspection - Respiratory Exam Respiratory Exam: Rales (bilateral bases), NORMAL BREATHING PATTERN. absent: Rhonchi, Wheezes, Respiratory Distress - Cardiovascular Exam Cardiovascular Exam: Irregular Rhythm, RRR, +S1, +S2. absent: Gallop, Rubs, Systolic Murmur - GI/Abdominal Exam GI & Abdominal Exam: Soft. absent: Distended, Guarding, Rebound, Tenderness - Extremities Exam Extremities exam: Positive for: normal inspection. Negative for: pedal edema - Back Exam Back exam: NORMAL INSPECTION - Neurological Exam Neurological exam: Alert, CN II-XII Intact, Oriented x3 - Psychiatric Exam Psychiatric exam: Normal Affect, Normal Mood - Skin Skin Exam: Dry, Intact, Normal Color, Warm Results - Vital Signs Recent Vital Signs: Last Vital Signs Temp 98.2 F 02/15/18 18:06 Pulse 108 H 02/15/18 18:06 Resp 20 02/15/18 18:06 BP 110/65 02/15/18 18:11 Pulse Ox 99 02/15/18 18:06 - Labs Result Diagrams: 02/15/18 16:21 02/15/18 16:21 Assessment & Plan - Assessment and Plan (Free Text) Assessment: Pt is a 67 yo M with PMH of chronic CHFrEF (EF 20% 11/2017), a-fib on [place] (2016), nonobstructive CAD, asthma, DM, and insomnia admitted for evaluation and treatment for atrial fibrillation with rapid ventricular response and acute on chronic CHFrEF exacerbation. Plan: 1. Atrial fibrillation with rapid ventricular response - EKG reviewed showed a-fib with rvr at rate of 131 - Cardizem bolus and gtt started in ED - Eliquis 5 mg BID - Digoxin 0.5 mg IVP stat, then 0.25 mg at 00:00am and 6:00 am, then 0.25 mg daily - Amiodarone 200 mg BID - Cardiology consulted 2. Acute on Chronic CHFrEF exacerbation - EKG findings as above - CXR showed no active disease; however rales auscultated in b/l bases - EF 20% (11/2017) - BNP 7660 - Lasix 40 mg once, then 20 mg BID - Coreg 12.5 mg BID - Aldactone 25 mg PO daily - Entresto 97-103 mg PO BID - Strict I's and O's - Daily weights - Head of bed to 30 degrees - Cardiology consulted 3. H/O CAD - Cont ASA - Coreg 4. Asthma - Atrovent prn 5. H/o DM - ISS - Accuchecks ACHS GI/DVT PPx - Eliquis - GI PPx not indicated at this time Patient seen and discussed in detail with Dr. Treviño. Shiva Hensley, PGY2 <Francisca Treviño - Last Filed: 02/16/18 09:25> Results - Vital Signs Recent Vital Signs: Last Vital Signs Temp 97.2 F L 02/16/18 06:00 Pulse 65 02/16/18 06:00 Resp 18 02/16/18 06:00 BP 109/74 02/16/18 06:00 Pulse Ox 95 02/16/18 06:00 - Labs Result Diagrams: 02/16/18 06:00 02/16/18 06:00 Labs: Laboratory Results - last 24 hr 02/15/18 02/15/18 02/16/18 21:15 21:35 06:00 WBC 4.0 L D RBC 4.15 Hgb 12.5 L Hct 36.6 L MCV 88.2 MCH 30.1 MCHC 34.2 RDW 18.4 H Plt Count 197 MPV 11.0 Sodium Potassium Chloride Carbon Dioxide Anion Gap BUN Creatinine Est GFR ( Amer) Est GFR (Non-Af Amer) POC Glucose (mg/dL) 119 H Random Glucose Calcium Phosphorus Magnesium Total Bilirubin AST ALT Alkaline Phosphatase Total Protein Albumin Globulin Albumin/Globulin Ratio Urine Color Light yellow Urine Appearance Clear Urine pH 6.5 Ur Specific [place] 1.010 Urine Protein Negative Urine Glucose (UA) Negative Urine Ketones Negative Urine Blood Negative Urine Nitrate Negative Urine Bilirubin Negative Urine Urobilinogen 0.2 Ur Leukocyte Esterase Negative 02/16/18 02/16/18 06:00 07:41 WBC RBC Hgb Hct MCV MCH MCHC RDW Plt Count MPV Sodium 141 Potassium 4.1 Chloride 106 Carbon Dioxide 23 Anion Gap 16 BUN 36 H Creatinine 1.3 Est GFR ( Amer) > 60 Est GFR (Non-Af Amer) 55 POC Glucose (mg/dL) 73 Random Glucose 79 Calcium 9.2 Phosphorus 4.6 H Magnesium 1.6 L Total Bilirubin 0.6 AST 20 ALT 44 Alkaline Phosphatase 49 Total Protein 6.1 Albumin 3.6 Globulin 2.5 Albumin/Globulin Ratio 1.4 Urine Color Urine Appearance Urine pH Ur Specific [place] Urine Protein Urine Glucose (UA) Urine Ketones Urine Blood Urine Nitrate Urine Bilirubin Urine Urobilinogen Ur Leukocyte Esterase Attending/Attestation - Attestation I have fully participated in the care of the patient.: Yes I have reviewed all pertinent clinical information: Yes Notes (Text): 02/16/18 09:20 Medical record note made by the resident after discussion with my direction and input after the patient was personally seen and examined by me. I have reviewed the chart and agree that the record accurately reflects by personal performance of the history, physical exam, data review, and medical decision-making, in the course for the patient. I have also personally directed the plan of care. 67 yo M with PMH of Non ischemic CMP, CHF with systolic dysfunction (EF 20% 2017), chronic AF on anticoagulation with eliquis, , nonobstructive CAD, asthma , DM, and insomnia is admitted with atrial fibrillation with rapid ventricular response and acute on chronic CH exacerbation. Digoxin level is low, we will start patient on digoxin loading, will continue coreg and amiodrone.We will monitor patient in telemetry. For CHF, we will start patient on IV lasix, we will follow up BUN/Creatinin and electrolyte. We will also get Cardiology consult. Management plan was discussed in detail with patient. Education was provided.
[2018-02-15] MEDS ORDERED: guaiFENesin 100 mg/5 ml Syrup UD PO STA (21:41)
[2018-02-15 21:42] LABS: PH,URINE 6.5 (4.7-8.0); URINE BILIRUBIN NEGATIVE (NEGATIVE); URINE BLOOD NEGATIVE (NEGATIVE); URINE GLUCOSE (UA) NEGATIVE (NEGATIVE); URINE LEUKOCYTE ESTERASE NEGATIVE Leu/uL (NEGATIVE); URINE PROTEIN NEGATIVE mg/dL (<30 mg/dL); URINE UROBILINOGEN 0.2 E.U./dL (<1 E.U./dL)
[2018-02-15 21:46] LABS: URINE APPEARANCE CLEAR (CLEAR); URINE COLOR LIGHT YELLOW (YELLOW)
[2018-02-15] MEDS ORDERED: SACUBITRIL 49mg/VALSARTAN 51mg tab PO SCH (22:00)
[2018-02-15] MEDS: Insulin Reg-LOW-Coverage SC SCH (22:10)
[2018-02-15] MEDS: SACUBITRIL 49mg/VALSARTAN 51mg tab PO SCH (22:26)
[2018-02-15] MEDS ORDERED: [UNRECOGNIZED DRUG - OTHER] PO ONE (23:08)
[2018-02-16] MEDS ORDERED: Digoxin 250 mcg (0.25 mg) Tab PO SCH
[2018-02-16] MEDS: Digoxin 500 mcg/2ml (0.5 mg/2ml) Inj IVP SCH ×2 (00:14→05:17)
[2018-02-16 00:22] VITALS: PULSE 76
[2018-02-16 06:20] LABS: HEMOGLOBIN 12.5 g/dL (14.0-18.0); MEAN CELL VOLUME 88.2 fl (80.0-105.0); MEAN CORPUSCULAR HEMOGLOBIN 30.1 pg (25.0-35.0); MEAN CORPUSCULAR HGB CONC 34.2 g/dl (31.0-37.0); RBC 4.15 10^6/uL (3.5-6.1); RED CELL DISTRIBUTION WIDTH 18.4 % (11.5-14.5)
[2018-02-16 06:45] LABS: ALB/GLOB RATIO 1.4 (1.1-1.8); ALBUMIN 3.6 g/dL (3.0-4.8); ALT/SGPT 44 U/L (7-56); AST/SGOT 20 U/L (17-59); BLOOD UREA NITROGEN 36 mg/dL (7-21); CALCIUM 9.2 mg/dL (8.4-10.5); GFR AFRICAN-AMERICAN > 60; GFR NON-AFRICAN AMERICAN 55
[2018-02-16] MEDS: Insulin Reg-LOW-Coverage SC SCH ×4 (08:13→22:38)
[2018-02-16] MEDS: Magnesium Oxide 400 mg Tab UD PO SCH ×5 (09:17→22:41)
[2018-02-16] MEDS: SACUBITRIL 49mg/VALSARTAN 51mg tab PO SCH ×2 (09:18→22:41)
--- NOTE | 2018-02-16 11:51 | CARD ---
APPROVED REPORT Date of service: 02/16/2018 EKG Measurement Heart [id number] <Conclusion> Atrial fibrillation with premature ventricular or aberrantly conducted complexes Left axis deviation Nonspecific T wave abnormality, probably digitalis effect Abnormal ECG
--- NOTE | 2018-02-16 15:19 | CP.PCM.PN ---
Subjective - Date & Time of Evaluation Date of Evaluation: 02/16/18 Time of Evaluation: 15:44 - Subjective Subjective: Harry Castano DO - PGY1 Internal Medicine [facility] - [facility] Progress Note Patient seen this AM at bedside w/ telugu speaking nurse present as record clerk salesperson. Patient reports he feels this AM w/ no complaints of CP or SOB. States that he is urinating well; no fevers chills overnight. Objective - Vital Signs/Intake and Output Vital Signs (last 24 hours): Temp Pulse Resp BP Pulse Ox 98.7 F 57 L 19 106/77 95 02/16/18 12:00 02/16/18 12:00 02/16/18 12:00 02/16/18 12:00 02/16/18 06:00 Intake and Output: 02/16/18 02/16/18 06:59 18:59 Intake Total 260 Output Total 2400 Balance -2140 - Medications Medications: Current Medications Amiodarone HCl (Cordarone) 200 mg PO BID NILESH Apixaban (Eliquis) 5 mg PO Q12 NILESH PRN Reason: Protocol Last Admin: 02/16/18 09:17 Dose: 5 mg Aspirin (Aspirin Chewable) 81 mg PO DAILY [facility] Last Admin: 02/16/18 09:18 Dose: 81 mg Carvedilol (Coreg) 12.5 mg PO 0800,1800 NILESH Digoxin (Lanoxin) 0.25 mg IVP 1400 NILESH Furosemide (Lasix) 40 mg PO DAILY [facility] Last Admin: 02/16/18 11:20 Dose: Not Given diltiaZEM IVPB 100mg in NS (Cardizem 100mg In Ns) 100 mls @ 5 mls/hr IV .Q20H PRN; Protocol; 5 MG/HR PRN Reason: TITRATE PER MD ORDER Last Admin: 02/15/18 17:09 Dose: 5 mls/hr Insulin Human Regular (Humulin R Low) 0 units SC ACHS NILESH PRN Reason: Protocol Last Admin: 02/16/18 11:58 Dose: Not Given Ipratropium [place] (Atrovent) 0.5 mg IH [id number] PRN PRN Reason: Shortness of Breath Magnesium Oxide (Mag-Ox) 400 mg PO QID [facility] Stop: 02/16/18 22:01 Last Admin: 02/16/18 13:53 Dose: 400 mg Sacubitril/Valsartan (Entresto 49 Mg-51 Mg Tablet) 1 each PO Q12 [facility] Last Admin: 02/16/18 09:18 Dose: 1 each Spironolactone (Aldactone) 25 mg PO DAILY [facility] Last Admin: 02/16/18 09:17 Dose: 25 mg - Labs Labs: 02/16/18 06:00 02/16/18 06:00 PT 22.0 SECONDS (9.4-12.5) H 02/15/18 16:21 INR 1.90 02/15/18 16:21 APTT 34.2 Seconds (25.1-36.5) 02/15/18 16:21 - Constitutional Appears: Well, Non-toxic, No Acute Distress - Head Exam Head Exam: ATRAUMATIC, NORMOCEPHALIC - Eye Exam Eye Exam: EOMI, Normal appearance, PERRL. absent: Scleral icterus - ENT Exam ENT Exam: Mucous Membranes Moist - Neck Exam Additional comments: Hepato-Jugular reflex appreciated - Respiratory Exam Respiratory Exam: Clear to Ausculation Bilateral, NORMAL BREATHING PATTERN. absent: Rales, Rhonchi, Wheezes - Cardiovascular Exam Cardiovascular Exam: +S1, +S2 Additional comments: Irregular rhythm - GI/Abdominal Exam GI & Abdominal Exam: Soft, Normal Bowel Sounds. absent: Tenderness Additional comments: No murphys sign - Extremities Exam Extremities Exam: absent: Pedal Edema - Back Exam Back Exam: absent: CVA tenderness (L), CVA tenderness (R) - Neurological Exam Neurological Exam: Alert, Awake, CN II-XII Intact, Oriented x3 - Psychiatric Exam Psychiatric exam: Normal Affect, Normal Mood - Skin Skin Exam: Dry, Intact, Warm Assessment and Plan - Assessment and Plan (Free Text) Assessment: Pt is a 67 yo M with PMH of chronic CHFrEF (EF 20% 11/2017), a-fib on [place], [place] (2017), nonobstructive CAD, asthma, DM, and insomnia admitted for evaluation and treatment for atrial fibrillation with rapid ventricular response and acute on chronic CHFrEF exacerbation. Plan: Atrial fibrillation with rapid ventricular response: Most likely 2/2 medication non compliance vs electrolyte abnormality - EKG reviewed showed a-fib with rvr at rate of 131; - Repeat EKG Afib w/ PVC or abberrantly conducted complexes; L axis deviation; Nonspecific T wave abnormality probably digitalis effect - Patient bradycardic overnight; cardizem drip is DC - Rate control: -C/w Amiodarone 200mg BID -C/w Coreg 12.5 BID -Holding Digoxin 0.25 QD - Eliquis 5 mg BID - Cardiology consulted Acute on Chronic CHFrEF exacerbation: - EKG findings as above; on admission CXR showed no active disease; however rales auscultated in b/l bases on admission - EF 20% (11/2017) - BNP 7660 - Patient does not appear to be fluid overloaded this AM; - DC lasix 20mg BID IVP - Start Lasix 40mg PO QD - Coreg as above - C/w Aldactone 25 mg PO daily - C/w Entresto 97-103 mg PO BID - Strict I's and O's -Patient is -2200L this AM - Daily weights - Head of bed to 30 degrees - Cardiology consulted Hypomagnesmia - Level 1.6 this AM - Repleted w/ 400mg PO - Recheck in AM H/O CAD - Cont ASA - Coreg Asthma - Atrovent prn H/o DM - ISS - Accuchecks ACHS - POC levels well controlled GI/DVT PPx - Eliquis - GI PPx not indicated at this time Dispo: Continued inpatient management at this time
--- NOTE | 2018-02-16 15:27 | CARD ---
APPROVED REPORT Date of service: 02/15/2018 EKG Measurement Heart [id number] <Conclusion> Atrial fibrillation with rapid ventricular response with premature ventricular or aberrantly conducted complexes Nonspecific T wave abnormality, probably digitalis effect Abnormal ECG
[2018-02-16] MEDS ORDERED: Digoxin 250 mcg (0.25 mg) Tab PO ONE (18:34)
[2018-02-17 06:02] VITALS: O2SAT 96
[2018-02-17 06:17] LABS: HEMOGLOBIN 13.6 g/dL (14.0-18.0); MEAN CELL VOLUME 88.2 fl (80.0-105.0); MEAN CORPUSCULAR HEMOGLOBIN 30.4 pg (25.0-35.0); MEAN CORPUSCULAR HGB CONC 34.4 g/dl (31.0-37.0); MEAN PLATELET VOLUME 10.9 fl (7.0-11.0); RBC 4.48 10^6/uL (3.5-6.1); RED CELL DISTRIBUTION WIDTH 17.7 % (11.5-14.5)
[2018-02-17 06:44] LABS: ALB/GLOB RATIO 1.3 (1.1-1.8); ALBUMIN 3.6 g/dL (3.0-4.8); ALT/SGPT 36 U/L (7-56); AST/SGOT 20 U/L (17-59); BLOOD UREA NITROGEN 33 mg/dL (7-21); CALCIUM 8.8 mg/dL (8.4-10.5); GFR AFRICAN-AMERICAN > 60; GFR NON-AFRICAN AMERICAN > 60
[2018-02-17] MEDS: Insulin Reg-LOW-Coverage SC SCH (08:12)
[2018-02-17] MEDS ORDERED: Albuterol-Ipratrop 3 mg / 0.5 (3 ml) UD IH ONE (09:46)
[2018-02-17] MEDS: SACUBITRIL 49mg/VALSARTAN 51mg tab PO SCH (09:56)
[2018-02-17 11:54] VITALS: BP 111/74; PULSE 56; RESP 18; TEMP 98.6
--- NOTE | 2018-02-17 13:01 | CP.PCM.CON ---
History of Present Illness - History of Present Illness History of Present Illness: Patient is a 67 y/o gentleman known to us from multiple admissions at [facility] and [facility] [place] as well as outpatient f/u. Patient with severe NICM Chronic AFIB Normal Cath 12/2017 Background COPD/emphysema/asthma Mild Pulmonary HTN Presented with ADHF/SOB in the context of AFIB/Flutter with RVR probably due to non-compliance. Currently feels better, rate better controlled, no significant volume overload. No fevers or chills No N/V Review of Systems - Review of Systems All systems: reviewed and no additional remarkable complaints except Past Patient History - Past Social History Smoking Status: Former Smoker - CARDIAC Hx Cardiac Disorders: Yes Other/Comment: Afib - PULMONARY Hx Respiratory Disorders: Yes Hx Chronic Obstructive Pulmonary Disease (COPD): Yes - NEUROLOGICAL Hx Neurological Disorder: No - HEENT Hx HEENT Problems: No - RENAL Hx Chronic Kidney Disease: No - ENDOCRINE/METABOLIC Hx Endocrine Disorders: Yes Hx Diabetes Mellitus Type 2: Yes - HEMATOLOGICAL/ONCOLOGICAL Hx Blood Disorders: No - INTEGUMENTARY Hx Dermatological Problems: No - MUSCULOSKELETAL/RHEUMATOLOGICAL Hx Musculoskeletal Disorders: No Hx Falls: No - GASTROINTESTINAL Hx Gastrointestinal Disorders: No - GENITOURINARY/GYNECOLOGICAL Hx Genitourinary Disorders: No - PSYCHIATRIC Hx Psychophysiologic Disorder: No Hx Substance Use: No - SURGICAL HISTORY Hx Surgeries: No Meds Allergies/Adverse Reactions: Allergies Allergy/AdvReac Type Severity Reaction Status Date / Time Penicillins Allergy RASH Verified 02/15/18 15:24 - Medications Medications: Current Medications Acetaminophen (Tylenol 325mg Tab) 650 mg PO Q6H PRN PRN Reason: Headache Last Admin: 02/16/18 16:17 Dose: 650 mg Amiodarone HCl (Cordarone) 200 mg PO BID [facility] Last Admin: 02/17/18 09:55 Dose: 200 mg Apixaban (Eliquis) 5 mg PO Q12 NILESH PRN Reason: Protocol Last Admin: 02/17/18 09:56 Dose: 5 mg Aspirin (Aspirin Chewable) 81 mg PO DAILY [facility] Last Admin: 02/17/18 09:56 Dose: 81 mg Benzonatate (Tessalon Perles) 100 mg PO TID [facility] Last Admin: 02/17/18 09:55 Dose: 100 mg Carvedilol (Coreg) 12.5 mg PO 0800,1800 [facility] Last Admin: 02/17/18 08:13 Dose: Not Given Diphenhydramine HCl (Benadryl) 25 mg PO HS PRN PRN Reason: Insomnia Last Admin: 02/17/18 00:04 Dose: 25 mg Furosemide (Lasix) 40 mg PO DAILY [facility] Last Admin: 02/17/18 09:56 Dose: 40 mg Insulin Human Regular (Humulin R Low) 0 units SC ACHS NILESH PRN Reason: Protocol Last Admin: 02/17/18 08:12 Dose: Not Given Ipratropium [place] (Atrovent) 0.5 mg IH [id number] PRN PRN Reason: Shortness of Breath Sacubitril/Valsartan (Entresto 49 Mg-51 Mg Tablet) 1 each PO Q12 [facility] Last Admin: 02/17/18 09:56 Dose: 1 each Spironolactone (Aldactone) 25 mg PO DAILY [facility] Last Admin: 02/17/18 09:55 Dose: 25 mg Physical Exam - Constitutional Appears: No Acute Distress - Head Exam Head Exam: ATRAUMATIC, NORMAL INSPECTION, NORMOCEPHALIC - Eye Exam Eye Exam: EOMI, Normal appearance, PERRL - ENT Exam ENT Exam: Mucous Membranes Moist, Normal Oropharynx - Neck Exam Neck exam: Positive for: Normal Inspection - Respiratory Exam Respiratory Exam: Clear to Auscultation Bilateral, NORMAL BREATHING PATTERN. absent: Rhonchi, Wheezes - Cardiovascular Exam Cardiovascular Exam: REGULAR RHYTHM, +S1, +S2. absent: +S4, Systolic Murmur - GI/Abdominal Exam GI & Abdominal Exam: Normal Bowel Sounds, Soft. absent: Tenderness - Extremities Exam Extremities exam: Positive for: full ROM, normal inspection. Negative for: pedal edema - Neurological Exam Neurological exam: Alert, CN II-XII Intact, Oriented x3 - Skin Skin Exam: Normal Color, Warm Results - Vital Signs Recent Vital Signs: Last Vital Signs Temp 98.6 F 02/17/18 11:53 Pulse 56 L 02/17/18 11:53 Resp 18 02/17/18 11:53 BP 111/74 02/17/18 11:53 Pulse Ox 96 02/17/18 06:00 - Labs Result Diagrams: 02/17/18 05:25 02/17/18 05:25 Labs: Laboratory Results - last 24 hr 08/0802/16/18 02/16/18 06:30 16:36 21:43 WBC RBC Hgb Hct MCV MCH MCHC RDW Plt Count MPV Sodium Potassium Chloride Carbon Dioxide Anion Gap BUN Creatinine Est GFR ( Amer) Est GFR (Non-Af Amer) POC Glucose (mg/dL) 88 146 H Random Glucose Calcium Phosphorus Magnesium Total Bilirubin AST ALT Alkaline Phosphatase Total Protein Albumin Globulin Albumin/Globulin Ratio Free T4 1.04 02/17/18 02/17/18 02/17/18 05:25 05:25 07:27 WBC 4.0 L RBC 4.48 Hgb 13.6 L Hct 39.5 L MCV 88.2 MCH 30.4 MCHC 34.4 RDW 17.7 H Plt Count 213 MPV 10.9 Sodium 136 Potassium 4.7 Chloride 101 Carbon Dioxide 26 Anion Gap 14 BUN 33 H Creatinine 1.2 Est GFR ( Amer) > 60 Est GFR (Non-Af Amer) > 60 POC Glucose (mg/dL) 91 Random Glucose 83 Calcium 8.8 Phosphorus 3.5 Magnesium 2.0 Total Bilirubin 0.8 AST 20 ALT 36 Alkaline Phosphatase 47 Total Protein 6.4 Albumin 3.6 Globulin 2.7 Albumin/Globulin Ratio 1.3 Free T4 02/17/18 11:02 WBC RBC Hgb Hct MCV MCH MCHC RDW Plt Count MPV Sodium Potassium Chloride Carbon Dioxide Anion Gap BUN Creatinine Est GFR ( Amer) Est GFR (Non-Af Amer) POC Glucose (mg/dL) 109 Random Glucose Calcium Phosphorus Magnesium Total Bilirubin AST ALT Alkaline Phosphatase Total Protein Albumin Globulin Albumin/Globulin Ratio Free T4 - EKG Data EKG Interpreted by: Myself (AFIB, no acute ischemic changes) Assessment & Plan - Assessment and Plan (Free Text) Assessment: 1. Acute on chronic NICM likely worsened by AFIB with RVR transiently requiring IV cardizem for rate control. NICM: cath normal 12/2017 Continue to maximize CHF therapy Carvedilol (Coreg) 12.5 mg Furosemide (Lasix) 40 mg Sacubitril/Valsartan (Entresto 49 Mg-51 Mg Tablet) Spironolactone (Aldactone) 25 mg 2. AFIB chronic cont eliquis rate control with coreg and amiodarone * monitor for worsening COPD/Asthma sx's * Patient is non-compliant with medical treatment; suggest outpatient f/u with us; will consider AFIB ablation as an option. * Dig level was 1.7: avoid dig if tolerating coreg and amiodarone 3. COPD/Bronchitis Adjust meds for COPD Pulm suportive care d/c planning: outpatient f/u.
[2018-02-17] MEDS ORDERED: Digoxin 250 mcg (0.25 mg) Tab PO SCH (14:00)
[2018-02-17] MEDS ORDERED: Digoxin 500 mcg/2ml (0.5 mg/2ml) Inj IVP SCH ×2 (14:00)
--- NOTE | 2018-02-17 23:48 | CP.PCM.DIS ---
Provider - Provider Date of Admission: 02/15/18 17:10 Attending physician: Francisca Treviño MD Primary care physician: Jay Morgan Consults: Cardiology - Dr. Hu Time Spent in preparation of Discharge (in minutes): 40 Diagnosis - Discharge Diagnosis (1) Atrial fibrillation with rapid ventricular response Status: Acute Priority: High (2) CHF (congestive heart failure) Status: Acute Priority: High (3) Hypomagnesemia Status: Acute Priority: Medium (4) COPD (chronic obstructive pulmonary disease) Status: Acute Priority: Medium (5) Diabetes Status: Chronic Priority: Low (6) CAD (coronary artery disease) Status: Chronic Priority: Medium Hospital Course - Lab Results Lab Results: Most Recent Lab Values WBC 4.0 10^3/ul (4.5-11.0) L 02/17/18 05:25 RBC 4.48 10^6/uL (3.5-6.1) 02/17/18 05:25 Hgb 13.6 g/dL (14.0-18.0) L 02/17/18 05:25 Hct 39.5 % (42.0-52.0) L 02/17/18 05:25 MCV 88.2 fl (80.0-105.0) 02/17/18 05:25 MCH 30.4 pg (25.0-35.0) 02/17/18 05:25 MCHC 34.4 g/dl (31.0-37.0) 02/17/18 05:25 RDW 17.7 % (11.5-14.5) H 02/17/18 05:25 Plt Count 213 10^3/uL (120.0-450.0) 02/17/18 05:25 MPV 10.9 fl (7.0-11.0) 02/17/18 05:25 Gran % 50.9 % (50.0-68.0) 02/15/18 16:21 Lymph % (Auto) 32.3 % (22.0-35.0) 02/15/18 16:21 [place] % (Auto) 15.6 % (1.0-6.0) H 02/15/18 16:21 Eos % (Auto) 0.8 % (1.5-5.0) L 02/15/18 16:21 Baso % (Auto) 0.4 % (0.0-3.0) 02/15/18 16:21 Gran # 2.58 (1.4-6.5) 02/15/18 16:21 Lymph # (Auto) 1.6 (1.2-3.4) 02/15/18 16:21 [place] # (Auto) 0.8 (0.1-0.6) H 02/15/18 16:21 Eos # (Auto) 0.0 (0.0-0.7) 02/15/18 16:21 Baso # (Auto) 0.02 K/mm3 (0.0-2.0) 02/15/18 16:21 PT 22.0 SECONDS (9.4-12.5) H 02/15/18 16:21 INR 1.90 02/15/18 16:21 APTT 34.2 Seconds (25.1-36.5) 02/15/18 16:21 Sodium 136 mmol/L (132-148) 02/17/18 05:25 Potassium 4.7 mmol/L (3.6-5.0) 02/17/18 05:25 Chloride 101 mmol/L (98-107) 02/17/18 05:25 Carbon Dioxide 26 mmol/L (21-33) 02/17/18 05:25 Anion Gap 14 (10-20) 02/17/18 05:25 BUN 33 mg/dL (7-21) H 02/17/18 05:25 Creatinine 1.2 mg/dl (0.8-1.5) 02/17/18 05:25 Est GFR ( Amer) > 60 02/17/18 05:25 Est GFR (Non-Af Amer) > 60 02/17/18 05:25 POC Glucose (mg/dL) 109 mg/dL (65-110) 02/17/18 11:02 Random Glucose 83 mg/dL (70-110) 02/17/18 05:25 Calcium 8.8 mg/dL (8.4-10.5) 02/17/18 05:25 Phosphorus 3.5 mg/dL (2.5-4.5) 02/17/18 05:25 Magnesium 2.0 mg/dL (1.7-2.2) 02/17/18 05:25 Total Bilirubin 0.8 mg/dL (0.2-1.3) 02/17/18 05:25 AST 20 U/L (17-59) 02/17/18 05:25 ALT 36 U/L (7-56) 02/17/18 05:25 Alkaline Phosphatase 47 U/L (38-126) 02/17/18 05:25 Lactate Dehydrogenase 473 U/L (333-699) 02/15/18 16:21 Total Creatine Kinase 46 U/L (35-230) 02/15/18 16:21 Troponin I < 0.01 ng/mL 02/15/18 16:21 NT-Pro-B Natriuret Pep 7660 pg/mL (0-450) H 02/15/18 16:21 Total Protein 6.4 g/dL (5.8-8.3) 02/17/18 05:25 Albumin 3.6 g/dL (3.0-4.8) 02/17/18 05:25 Globulin 2.7 gm/dL 02/17/18 05:25 Albumin/Globulin Ratio 1.3 (1.1-1.8) 02/17/18 05:25 Free T4 1.04 ng/dL (0.78-2.19) 02/16/18 06:30 TSH 3rd Generation 8.75 mIU/mL (0.46-4.68) H 02/16/18 07:30 Urine Color Light yellow (YELLOW) 02/15/18 21:35 Urine Appearance Clear (CLEAR) 02/15/18 21:35 Urine pH 6.5 (4.7-8.0) 02/15/18 21:35 Ur Specific [place] 1.010 (1.005-1.035) 02/15/18 21:35 Urine Protein Negative mg/dL (<30 mg/dL) 02/15/18 21:35 Urine Glucose (UA) Negative mg/dL (NEGATIVE) 02/15/18 21:35 Urine Ketones Negative mg/dL (NEGATIVE) 02/15/18 21:35 Urine Blood Negative (NEGATIVE) 02/15/18 21:35 Urine Nitrate Negative (NEGATIVE) 02/15/18 21:35 Urine Bilirubin Negative (NEGATIVE) 02/15/18 21:35 Urine Urobilinogen 0.2 E.U./dL (<1 E.U./dL) 02/15/18 21:35 Ur Leukocyte Esterase Negative Crispin/uL (NEGATIVE) 02/15/18 21:35 Digoxin 1.7 ng/mL (0.8-2.0) 02/16/18 06:30 - Hospital Course Hospital Course: Harry Castano DO 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 Patient admits to productive cough with pink tinged sputum. Patient states that he cannot walk a block without becoming short of breath and often wakes up at night with shortness of breath. Patient requires multiple pillows when sleeping at night. Patient also complaining of midsternal chest pressure over the last day without radiation. Patient complained of multiple episodes of small diarrhea yesterday, but none today. Patient denied n/v, abdominal pain, fever, chills, NEFF, dizziness, dysuria, melena, or hematochezia. Of note, patient states he saw his grocery supervisor about one month ago. However, he has only been taking the medications listed below which does not include any medications for rate/rhythm control or loop diuretic. Hospital Course: In ED, Patient was noted to have Afib w/ RVR. He was not noted to be on any rate control medications upon presenting to the ED. CXR in ED showed no signs of pulmonary edema or congestion. He was subsequently admitted for decompensated heart failure in the setting of Afib w/ RVR. Patient was given cardizem bolus and gtt; Subsequently started on digoxin, carvedilol, and amiodarone. Overnight tele monitoring revealed bradycardia and cardizem drip was stopped. Through remainder of hospital course, patient's heart rate remained well controlled. He was also agressively diuresed and lost approximately 3L of fluid. Patient is euvolemic at this time; complaints of SOB were resolved. Patient did have some residual cough and minor wheezing. His grocery supervisor Dr. Gillespie was consulted, and patient was cleared from a cardiology stand point for outpatient follow up by Dr. Lau. He was seen in the morning prior to discharged and was only coicing complaints of mild cough. Patient was given duoneb treatment in response and subsequently felt well. He was not endorsing any chest pain, or shortness of breath. Denied any GI or urinary complaints as well. He was discharged w/ the following instructions in both Chinese and Mauritanian; He was also given his Med Reccs in Mauritanian - Usted ingres por insuficiencia cardaca descompensada con fibrilacin auricular - Lilliana un seguimiento con cheema mdico de atencin primaria; Francisca Yip dentro de los 7 rocha posteriores al brendan - Lilliana un seguimiento con cheema cardilogo William Shipman dentro de los 7 d as posteriores al brendan - Comience a selwyn pastillas de agua - Furosemida 40 mg todos los rocha para la insuficiencia cardaca - Comience a selwyn inhaladores de esteroides Asmanex 2 inhalaciones dos veces al da para el asma - Comience a selwyn amiodarona 200 mg dos veces al da - Por favor lupe de selwyn digoxina - Contine tomando marylin otros medicamentos para el hogar segn lo recetado, a menos que se indique lo contrario arriba - Si marylin sntomas empeoran o si experimenta nuevos sntomas de preocupacin, vaya a la mireille de emergencias ms cercana. - Contine tomando los medicamentos de cheema hogar segn lo recetado - You were admitted for decompensated heart failure with atrial fibrillation - Please follow up with your primary care doctor; Francisca Yip within 7 days of discharge - Please follow up with your grocery supervisor William Shipman within 7 days of discharge - Please start taking water pill - Furosemide 40 mg every day for heart failure - Please start taking steroid inhaler Asmanex 2 puffs twice a day for asthma - Please start taking amiodarone 200mg BID - Please stop taking digoxin - Please continue taking your other home medications as prescribed, unless stated otherwise above - If your symptoms worsen or if you experience newly concerning symptoms please go to your nearest emergency department The patient is medically stable for discharge at this time. - Date & Time of H&P Date of H&P: 02/15/18 Time of H&P: 18:47 Discharge Exam - Head Exam Head Exam: ATRAUMATIC, NORMAL INSPECTION, NORMOCEPHALIC - Eye Exam Eye Exam: EOMI, PERRL. absent: Scleral icterus - ENT Exam ENT Exam: Mucous Membranes Moist - Respiratory Exam Respiratory Exam: Clear to PA & Lateral, NORMAL BREATHING PATTERN, UNREMARKABLE. absent: Rhonchi, Wheezes, Stridor - Cardiovascular Exam Cardiovascular Exam: Irregular Rhythm, +S1, +S2. absent: Systolic Murmur - GI/Abdominal Exam GI & Abdominal Exam: Normal Bowel Sounds, Soft, Unremarkable. absent: Tenderness - Extremities Exam Extremities exam: pedal pulses present (2+ TP/DP) Additional comments: NO LE EDEMA - Back Exam Back exam: absent: CVA tenderness (L), CVA tenderness (R) - Neurological Exam Neurological exam: Alert, CN II-XII Intact, Normal Gait, Oriented x3 - Psychiatric Exam Psychiatric exam: Normal Affect, Normal Mood - Skin Skin Exam: Dry, Intact, Normal Color, Warm Discharge Plan - Discharge Medications Prescriptions: Amiodarone [Cordarone] 200 mg PO BID #28 tab Carvedilol [Coreg] 12.5 mg PO BID #28 tab Furosemide 40 mg PO DAILY #30 tablet Mometasone Furoate [Asmanex] 110 mcg IH BID #1 [email or web address] - Follow Up Plan Condition: STABLE Disposition: HOME/ ROUTINE Instructions: Atrial Fibrillation (DC), Heart Failure, Adult (DC) Additional Instructions: - Usted ingres por insuficiencia cardaca descompensada con fibrilacin auricular - Lilliana un seguimiento con cheema mdico de atencin primaria; Francisca Yip dentro de los 7 rocha posteriores al brendan - Lilliana un seguimiento con cheema cardilogo Dr. Gillespie, Se[place] dentro de los 7 d as posteriores al brendan - Comience a selwyn pastillas de agua - Furosemida 40 mg todos los rocha para la insuficiencia cardaca - Comience a selwyn inhaladores de esteroides Asmanex 2 inhalaciones dos veces al da para el asma - Comience a selwyn amiodarona 200 mg dos veces al da - Por favor lupe de selwyn digoxina - Contine tomando marylni otros medicamentos para el hogar segn lo recetado, a menos que se indique lo contrario arriba - Si marylin sntomas empeoran o si experimenta nuevos sntomas de preocupacin, vaya a la mireille de emergencias ms cercana. - Contine tomando los medicamentos de cheema hogar segn lo recetado - You were admitted for decompensated heart failure with atrial fibrillation - Please follow up with your primary care doctor; Francisca Yip within 7 days of discharge - Please follow up with your grocery supervisor William Shipman within 7 days of discharge - Please start taking water pill - Furosemide 40 mg every day for heart failure - Please start taking steroid inhaler Asmanex 2 puffs twice a day for asthma - Please start taking amiodarone 200mg BID - Please stop taking digoxin - Please continue taking your other home medications as prescribed, unless stated otherwise above - If your symptoms worsen or if you experience newly concerning symptoms please go to your nearest emergency department Referrals: Jay Morgan MD [Primary Care Provider] -
== END 2018-02-17 17:06 | disposition home or self-care (01) | DRG 308 ==
LOC: ED 15:01 → ERH 17:10 → 2RNO 19:28
PROVIDERS: ADMIT Internal Medicine; ATTEND Internal Medicine
DX: I48.2 Chronic atrial fibrillation (principal); I50.23 Acute on chronic systolic (congestive) heart failure; I42.9 Cardiomyopathy, unspecified; I48.92 Unspecified atrial flutter; E11.9 Type 2 diabetes mellitus without complications; I25.10 Atherosclerotic heart disease of native coronary artery without angina pectoris; J44.9 Chronic obstructive pulmonary disease, unspecified; J43.9 Emphysema, unspecified; I27.20 Pulmonary hypertension, unspecified; G47.00 Insomnia, unspecified; I25.2 Old myocardial infarction; Z79.01 Long term (current) use of anticoagulants; Z79.51 Long term (current) use of inhaled steroids; Z87.891 Personal history of nicotine dependence; Z79.82 Long term (current) use of aspirin; Z91.19 Patient's noncompliance with other medical treatment and regimen; Z88.0 Allergy status to penicillin